=== PATIENT | female | born 1990 | race Hispanic/Latino ===

== ENCOUNTER 2017-08-25 22:33 | Emergency (ER) | payer OTHER, SELFPAY ==
[2017-08-25] MEDS ORDERED: LIDOCAINE 1% MPF 5 ML VIAL ONE (23:29)
--- NOTE | 2017-08-25 23:47 | EDPHYS ---
Physician Documentation [facility] Name: Melonie Fuller Age: 26 yrs Sex: Female : 1990 Arrival Date: 08/25/2017 Time: 22:33 Bed 27 Private MD: ED Physician Ran Vargas HPI: 08/26 01:38 This 26 yrs old Female presents to ER via Ambulatory with complaints of Boil. snw 01:38 Onset: The symptoms/episode began/occurred suddenly, 2 day(s) ago, and became snw persistent. Associated signs and symptoms: The patient has no apparent associated signs or symptoms. The patient has not experienced similar symptoms in the past. It is unknown whether or not the patient has recently seen a physician. 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 - Social history:: Smoking status: Patient/guardian denies using tobacco, Patient/guardian denies using alcohol, street drugs, IV drugs. - Ebola Screening: : No symptoms or risks identified at this time. ROS: 08/26 01:35 Constitutional: Negative for fever, chills, and weight loss, Eyes: Negative for injury, snw pain, redness, and discharge, ENT: Negative for injury, pain, and discharge, Neck: Negative for injury, pain, and swelling, Cardiovascular: Negative for chest pain, palpitations, and edema, Respiratory: Negative for shortness of breath, cough, wheezing, and pleuritic chest pain, Abdomen/GI: Negative for abdominal pain, nausea, vomiting, diarrhea, and constipation, Back: Negative for injury and pain, : Negative for injury, bleeding, discharge, and swelling, MS/Extremity: Negative for injury and deformity, Neuro: Negative for headache, weakness, numbness, tingling, and seizure. Skin: Positive for abscess, of the left buttock. Exam: 01:34 Constitutional: This is a well developed, well nourished patient who is awake, alert, snw and in no acute distress. Head/Face: Normocephalic, atraumatic. Eyes: Pupils equal round and reactive to light, extra-ocular motions intact. Lids and lashes normal. Conjunctiva and sclera are non-icteric and not injected. Cornea within normal limits. Periorbital areas with no swelling, redness, or edema. 01:34 Neck: Trachea midline, no thyromegaly or masses palpated, and no cervical lymphadenopathy. Supple, full range of motion without nuchal rigidity, or vertebral point tenderness. No Meningismus. Chest/axilla: Normal chest wall appearance and motion. Nontender with no deformity. No lesions are appreciated. Cardiovascular: Regular rate and rhythm with a normal S1 and S2. No gallops, murmurs, or rubs. Normal PMI, no JVD. No pulse deficits. Respiratory: Lungs have equal breath sounds bilaterally, clear to auscultation and percussion. No rales, rhonchi or wheezes noted. No increased work of breathing, no retractions or nasal flaring. Abdomen/GI: Soft, non-tender, with normal bowel sounds. No distension or tympany. No guarding or rebound. No evidence of tenderness throughout. Back: No spinal tenderness. No costovertebral tenderness. Full range of motion. MS/ Extremity: Pulses equal, no cyanosis. Neurovascular intact. Full, normal range of motion. Neuro: Awake and alert, GCS 15, oriented to person, place, time, and situation. Cranial nerves II-XII grossly intact. Motor strength 5/5 in all extremities. Sensory grossly intact. Cerebellar exam normal. Normal gait. 01:34 ENT: External ear(s): are unremarkable, Nose: nasal drainage, that is moderate, and is seen coming from both nares, that is clear, Mouth: is normal. 01:34 Skin: Appearance: normal except for affected area, abscess, that is small, of the left buttock. Vital Signs: 08/25 23:20 BP 138 / 83; Pulse 90; Resp 18; Temp 98.5; Pulse Ox 100% on R/A; Weight 127.01 kg; mg2 Height 5 ft. 0 in. (152.40 cm); Pain 4/10; 23:20 Body Mass Index 54.68 (127.01 kg, 152.40 cm) mg2 MDM: 22:52 Patient medically screened. snw 08/26 01:36 Data reviewed: vital signs, nurses notes. Data interpreted: Pulse oximetry: on room air snw is 100 %. Interpretation: normal. Counseling: I had a detailed discussion with the patient and/or guardian regarding: the historical points, exam findings, and any diagnostic results supporting the discharge/admit diagnosis, the presence of at least one elevated blood pressure reading (>120/80) during this emergency department visit, lab results, the need for outpatient follow up, to return to the emergency department if symptoms worsen or persist or if there are any questions or concerns that arise at home. Special discussion: Based on the history and exam findings, there is no indication for further emergent testing or inpatient evaluation. I discussed with the patient/guardian the need to see the bobbin handler for further evaluation of the symptoms. 08/25 23:19 Order name: Wound Culture snw Administered Medications: 08/25 23:42 Drug: Lidocaine (1 %) 5 mg Route: Infiltration; mg2 08/26 00:01 Follow up: Response: No adverse reaction mg2 00:00 Drug: [place] 5 mg-325 mg 1 tabs Route: PO; mg2 00:01 Follow up: Response: No adverse reaction; Medication administered at discharge. mg2 00:01 Drug: KeFLEX 500 mg Route: PO; mg2 00:01 Follow up: Response: No adverse reaction; Medication administered at discharge. mg2 Disposition: 08/25/17 23:46 Discharged to Home. Impression: Cutaneous abscess of buttock, Pyogenic granuloma. - Condition is Stable. - Discharge Instructions: Abscess, Hypertension, Incision and Drainage, Sitz Bath. - Prescriptions for Keflex 500 mg Oral Capsule - take 1 capsule by ORAL route every 8 hours for 10 days; 30 capsule. Diclofenac Sodium 75 mg Oral Tablet Sustained Release - take 1 tablet by ORAL route 2 times per day; 30 tablet. - Medication Reconciliation Form, Thank You Letter, Antibiotic Education, Prescription Opioid Use form. - Follow up: Emergency Department; When: As needed; Reason: Worsening of condition. Follow up: Private Physician; When: 1 - 2 days; Reason: Recheck today's complaints, Continuance of care, Re-evaluation by your physician. Addendum: 08/28/2017 06:33 Co-signature as Attending Physician, Ran Vargas MD I agree with the assessment and c aguirre plan of care. Signatures: Dispatcher [employer] Ran Rabago MD MD cha Therrien, Shelly, RESIDENT SERVICES DIRECTOR-C RESIDENT SERVICES DIRECTOR-Csnw Gonzales Richter, RN RN mg2 Corrections: (The following items were deleted from the chart) 08/26 00:05 08/25 23:46 08/25/2017 23:46 Discharged to Home. Impression: Cutaneous abscess of mg2 buttock; Pyogenic granuloma. Condition is Stable. Forms are Medication Reconciliation Form, Thank You Letter, Antibiotic Education, Prescription Opioid Use. Follow up: Emergency Department; When: As needed; Reason: Worsening of condition. Follow up: Private Physician; When: 1 - 2 days; Reason: Recheck today's complaints, Continuance of care, Re-evaluation by your physician. snw
--- NOTE | 2017-08-25 23:47 | ER ---
Nurse's Notes [facility] Name: Melonie Fuller Age: 26 yrs Sex: Female : 1990 Arrival Date: 08/25/2017 Time: 22:33 Bed 27 Private MD: Diagnosis: Cutaneous abscess of buttock;Pyogenic granuloma Presentation: 08/25 23:14 Presenting complaint: Patient states: she has a boil on her right buttocks for 6 month. mg2 she is not on any treatment. Transition of care: patient was not received from another setting of care. Onset of symptoms was March 2017. Risk Assessment: Do you want to hurt yourself or someone else? Patient reports no desire to harm self or others. Initial Sepsis Screen: Does the patient meet any 2 criteria? No. Patient's initial sepsis screen is negative. Does the patient have a suspected source of infection? No. Patient's initial sepsis screen is negative. Care prior to arrival: None. 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 - Social history:: Smoking status: Patient/guardian denies using tobacco, Patient/guardian denies using alcohol, street drugs, IV drugs. - Ebola Screening: : No symptoms or risks identified at this time. Screenin/13 00:04 Abuse screen: Denies threats or abuse. Denies injuries from another. Nutritional mg2 screening: No deficits noted. Tuberculosis screening: No symptoms or risk factors identified. Fall Risk None identified. Assessment: 00:02 General: Appears in no apparent distress. comfortable, Behavior is calm, cooperative. mg2 Pain: Complains of pain in right buttock Pain does not radiate. Pain currently is 5 out of 10 on a pain scale. Quality of pain is described as aching, Pain began gradually, 6 months ago. Neuro: Level of Consciousness is awake, alert, obeys commands, Oriented to person, place, time, situation. Cardiovascular: Capillary refill < 3 seconds Patient's skin is warm and dry. Respiratory: Airway is patent Respiratory effort is even, unlabored, Respiratory pattern is regular, symmetrical. GI: No signs and/or symptoms were reported involving the gastrointestinal system. : No signs and/or symptoms were reported regarding the genitourinary system. EENT: No signs and/or symptoms were reported regarding the EENT system. Derm: Skin is intact, Skin is pink, warm \T\ dry. normal, Abscess located on right buttock is nickel sized. Musculoskeletal: No signs and/or symptoms reported regarding the musculoskeletal system. Vital Signs: 08/25 23:20 BP 138 / 83; Pulse 90; Resp 18; Temp 98.5; Pulse Ox 100% on R/A; Weight 127.01 kg; mg2 Height 5 ft. 0 in. (152.40 cm); Pain 4/10; 23:20 Body Mass Index 54.68 (127.01 kg, 152.40 cm) mg2 ED Course: 22:33 Patient arrived in ED. ds1 22:51 Jackie Krishnan FNP-C [facility]. snw 22:51 Ran Vargas MD is Attending Physician. snw 23:07 Gonzales Richter RN is Primary Nurse. mg2 23:15 Triage completed. mg2 23:22 Arm band placed on. mg2 23:50 Patient has correct armband on for positive identification. mg2 08/26 00:04 No provider procedures requiring assistance completed. Patient did not have IV access mg2 during this emergency room visit. Administered Medications: 08/25 23:42 Drug: Lidocaine (1 %) 5 mg Route: Infiltration; mg2 08/26 00:01 Follow up: Response: No adverse reaction mg2 00:00 Drug: [place] 5 mg-325 mg 1 tabs Route: PO; mg2 00:01 Follow up: Response: No adverse reaction; Medication administered at discharge. mg2 00:01 Drug: KeFLEX 500 mg Route: PO; mg2 00:01 Follow up: Response: No adverse reaction; Medication administered at discharge. mg2 Outcome: 08/25 23:46 Discharge ordered by . snw 08/26 00:04 Discharged to home ambulatory, with family. mg2 Condition: stable Discharge instructions given to patient, family, Instructed on discharge instructions, follow up and referral plans. medication usage, Demonstrated understanding of instructions, follow-up care, medications, Prescriptions given X 2. 00:05 Patient left the ED. mg2 Signatures: Jackie Krishnan, DIRECTOR GIFT-C DIRECTOR GIFT-Csnw Fossi ds1 Gonzales Richter, RN RN mg2 Corrections: (The following items were deleted from the chart) 00:02 00:01 Response: No adverse reaction; Medication held due to patient's status mg2 mg2
[2017-08-25] MEDS ORDERED: HYDROCODONE/APAP 5/325 MG TAB ONE (23:56)
[2017-08-25] MEDS ORDERED: CEPHALEXIN 250 MG CAP ONE (23:57)
== END 2017-08-26 00:05 | disposition home or self-care (01) ==
LOC: ER 22:33
DX: L98.0 Pyogenic granuloma (principal)
CPT/HCPCS: 87070; 87205; 99283

== ENCOUNTER 2020-11-11 19:28 | Observation (INO) | payer OTHER, SELFPAY ==
[2020-11-11] MEDS ORDERED: BUTORPHANOL 1 MG/ML INJ IV PRN (21:11)
[2020-11-11] MEDS ORDERED: Ringers Lactate 1,000 ML IV PRN (21:11)
[2020-11-11] MEDS ORDERED: ZOLPIDEM TARTRATE 10 MG TABLET PO ONE (21:16)
--- NOTE | 2020-11-11 21:31 | RAD REPORT ---
EXAM DESCRIPTION: US - OB Limited - 11/11/2020 9:03 pm CLINICAL HISTORY: with vaginal bleeding COMPARISON: None FINDINGS: Breech presentation. No amniotic fluid. No cardiac activity. Marked cervical funneling BPD 4.7 centimeters 20 weeks 1 day HC 18.5 centimeters 20 weeks 6 days Right and left adnexal unremarkable IMPRESSION: demise Estimated gestational age 20 weeks 4 days
[2020-11-11] MEDS ORDERED: Ringers Lactate 1,000 ML IV SCH (22:00)
[2020-11-11 22:13] LABS: Urine Appearance CLEAR (Clear); Urine Bilirubin NEGATIVE (Negative); Urine Blood 3+ (Negative); Urine Color YELLOW (Yellow); Urine Glucose NEGATIVE (Negative); Urine Protein NEGATIVE (Negative); Urine Specific Gravity <=1.005 (1.005-1.030); Urine Urobilinogen 0.2 mg/dL (0.2-1.0)
[2020-11-11 22:13] LABS: Absolute Lymphocytes (CBC) 2.8 K/uL (0.7-4.9); Basophils % 0.3 % (0-1.3); Hematocrit 38.4 % (36.0-45.0); Lymphocytes % 19.3 % (15.3-44.8); MPV 9.1 fL (7.6-11.3); RBC Red Blood Cell Count 4.22 M/uL (3.86-4.86)
[2020-11-11 22:14] LABS: Urine Microscopic Reflex ORDER UMIC
[2020-11-11 22:20] LABS: Urine Bacteria <20 /HPF (<20); Urine Mucus 2+ /HPF (NONE SEEN)
[2020-11-11 22:22] LABS: Barbiturates NEGATIVE (NEGATIVE); Benzodiazepines NEGATIVE (NEGATIVE); Cocaine NEGATIVE (NEGATIVE); METHAMPHETAM NEGATIVE (NEGATIVE); Methadone NEGATIVE (NEGATIVE); Opiates NEGATIVE (NEGATIVE); Phencyclidine NEGATIVE (NEGATIVE); THC Cannibis POSITIVE (NEGATIVE)
[2020-11-11 22:44] VITALS: BMI 50.8
[2020-11-11 23:48] LABS: RPR (Rapid Plasma Reagin) NON-REACT (NON-REACT)
[2020-11-12 05:57] VITALS: BP 117/68; TEMP 99.8
[2020-11-12] MEDS ORDERED: OXYTOCIN/LR 20 UNIT/1,000 ML BAG IV SCH (07:00)
[2020-11-12] MEDS ORDERED: PROMETHAZINE INJ 25 MG/ML AMP IM PRN (07:40)
[2020-11-12] MEDS ORDERED: METHYLERGONOVINE 0.2MG/ML AMP IM ONE (09:09)
[2020-11-12] MEDS ORDERED: LIDOCAINE 1% MPF 30 ML VIAL ONE (09:09)
--- NOTE | 2020-11-12 09:37 | RAD REPORT ---
EXAM DESCRIPTION: US - OB Limited - 11/12/2020 9:18 am CLINICAL HISTORY: RETAINED PLACENTA COMPARISON: OB Limited dated 11/11/2020 FINDINGS: No IUP identified. Endometrial thickness measures 13 millimeters. No findings to suggest r etained products of conception. No significant focal adnexal abnormality. No free fluid. The uterus m easures 13.9 cm in length. IMPRESSION: No evidence of retained products of conception.
--- NOTE | 2020-11-12 10:04 | OP ---
Surgeon: Abiel Mustafa MD Procedure In Detail: Melonie Fuller is a 30-year-old, primigravida, 21 weeks 2 days. Had an ultrasound last Tuesday at [facility], showed normal. Within the last 24 hours, she had vaginal bleeding, came t o our facility, was noted to have hourglassing membranes. Ultrasound demonstrated demise, christophe ch presentation. The patient was observed this morning. During the exam, rupture of membranes, meco nium staining and the baby is about -1 station. Started on Pitocin and delivered rapidly of a 15-oun ce female. Apgars 0 and 0 normal. No cord problem that could be seen. Placenta was spon taneous, but it was ragged 1 piece, but not completely normal formed. Ultrasound has been ordered to make sure there are no retained products. The patient's lochia is minimal at this point. She was g iven 2 g of Ancef during the labor. Cultures aerobic and anaerobic were taken. Torch screen has bee n ordered. The patient is quite stable at this point. Got Stadol 1 mg, Phenergan 25 mg during her l abor. Final Diagnoses: Intrauterine gestation 21 weeks 2 days, stillborn. Spontaneous vaginal delivery. Ultrasound pending to make sure of complete placental expulsion. She is Rh positive, immune to Rubel la. Tdap will be offered. AMRIT/CLIF Voice ID: [id number] Report ID: [id number]
--- NOTE | 2020-11-12 10:07 | PREOPHP ---
Date of Admission: 11/11/2020 History Of Present Illness: Melonie Fuller is a 30-year-old, primigravida, 21 weeks and approximately 2 or 3 days. Has been seen in the [facility], was supposed to deliver at [facility]. Had ultrasound l ast Tuesday that showed everything was completely normal with routine ultrasound. No problems at that point. The patient denies any significant drug intake. Denies any problems. Says she was tested f or diabetes and was negative. Began bleeding yesterday, came to Labor and Delivery. Had some bloody show, but no significant bleeding. Was noted to have the bag of water is bulging into the vagina. Ultrasound demonstrated a demise. Baby is breech. She was asleep this morning, but on exam th e bag of water spontaneously broke in the meconium stain. The baby is about -1 station, breech prese ntation. Options given including if she wished to go to [place], but she says she has never been th ere and does not wish to go and wishes stay here, and we informed her we will be happy to take care o f her. We will start Pitocin. We will also start some antibiotics. Screen thus far shows the patie nt is Rh positive and immune to Rubella. Strep status course is to early, but we will give the patie nt antibiotics. There was no strong odor and the patient has had no fever, but this is more for prop hylaxis. Once we get good firm contractions, I think we will make fairly expeditious progress. The patient knows that we will do our best to try to figure out the reason for the demise, but there were no guarantees can be made. She is alone right now. Says she probably will have somebody come ana g this process. Family History: There is no contributing significant family history. Allergies: NO ALLERGIES. Physical Examination: HEENT: Clear. Pupils equal, round, and reactive to light and accommodation. Conjunctivae well perf used. No oral, lingual, or buccal lesions. Chest and Lungs: Clear to auscultation by the nurses. Breasts: Not examined. 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 Abdomen: Very large, but nontender. Extremities: Clear without edema, cyanosis, or clubbing. Assessment/plan: Pelvic exam shows spontaneous rupture. Baby breech, but difficult to say how much cervix since presenting part makes it difficult to feel the cervical edges, but I think with good fir m contractions, we should make rapid progress. AMRIT/CLIF Voice ID: [id number]
[2020-11-12] MEDS ORDERED: CEFAZOLIN 2 GM IN 0.9% NACL 2 GM/100 ML BAG IV SCH (12:00)
[2020-11-12] MEDS ORDERED: CEFAZOLIN 2 GM in NA CHLORIDE 0.9% 100 ML IVPB SCH (12:00)
[2020-11-16 18:35] LABS: HBsAG Nonreactive (Nonreactive)
== END 2020-11-12 15:50 | disposition home or self-care (01) ==
LOC: L&D 19:28 → 2ND-WC 21:09 → INTOOBSV 21:09
PROVIDERS: ADMIT Specialist; ATTEND Specialist
PROC: 10E0XZZ Delivery of Products of Conception, External Approach (ICD-10-PCS; principal; 2020-11-12)
DX: O36.4XX0 Maternal care for intrauterine death, not applicable or unspecified (principal); Z37.1 Single stillbirth; Z3A.21 21 weeks gestation of pregnancy; Z20.822 Contact with and (suspected) exposure to COVID-19
CPT/HCPCS: 99218; 87088; 87070; 85025; 87086; 36415; 86900; 86850; 82947; 87205; 86762; 86901; 86592; 88305; 87075; 80307; 87340; 76815 ×2; G0433; U0003; J0595; J2550; J2590; J0690; G0378 ×4; J7120; 81003; 81015; 88307; J2210

== ENCOUNTER 2021-07-24 05:07 | Emergency (ER) | payer OTHER ==
--- OUTSIDE RECORDS SUMMARY | 2021-07-24 05:11 | XMS REPORT | Continuity of Care Document ---
:1990 Author Organization [facility] t Address [address] [place] [address] Dr. Fernandez [address] [place] [address] Care Team Providers Name Role Phone Unavailable Unavailable Unavailable Problems This patient has no known problems. Allergies, Adverse Reactions, Alerts This patient has no known allergies or adverse reactions. Medications This patient has no known medications. Procedures This patient has no known procedures. Results Test Description Test Time Test Comments Results Result Comments Source HEMOGLOBIN ELECTROPHORESIS 2021-07-20 19:22:48 Test Item Value Reference Range Interpretation Comme nts HEMOGLOBIN A1 (test code = 97.4 % 95.0-98.5 2575) HEMOGLOBIN A2 (test code = 2.6 % 1.6-3.7 2576) HEMOGLOBIN F () (test 0.0 % 0.0-2.0 code = 2722) HEMOGLOBIN S (test code = NONE % NONE DETECTED 272) HEMOGLOBIN C (test code = NONE % NONE DETECTED 6) OTHER HEMOGLOBIN VARIANT (test NONE DETEC % NONE DETECTED code = 67998) PATHOLOGIST'S INTERPRETATION (NOTE) NO ABNORMAL HEMOGLOBINS (test code = 2577) YEVGENIY DENT M.D. CT/NG, NAAT, [id number] 17:58:46 Test Item Value Reference Range Interpretation Comments GONORRHEA, NAAT NEGATIVE NEGATIVE IMPORTANT (test code = NOTICE: [place] [address]) [email or web address] Note: Assay methodology is nucleic acid amplification b y ferry terminal agent mediated amplification ( TMA) utilizing the A ptima Combo 2 Assay. CHLAMYDIA, NAAT NEGATIVE NEGATIVE IMPORTANT (test code = NOTICE: [place] [address]) [email or web address] Note: Assay methodology is nucleic acid amplification b y ferry terminal agent mediated amplification ( TMA) utilizing the A ptima Combo 2 Assay. THC METABOLITE, QUANT, [id number] 17:13:23 Test Item Value Reference Range Interpretation Comments CARBOXY-THC Positive A INTERP (test code = 19742) CARBOXY-THC 460 ng/mL <15 H Reference rang e indicates QNT (test cutoff for posi tive result code = 04354) determination. Specimen Type: Urine Urine jim g and metabolite concentrations are dependent on manyfactors, in cluding patient compliance, jim g dosing, dosing interval,indivi dual variation in drug absorpt ion and metabolism, uri neconcentration, and limitations of testing. Assay is intend ed formedical purposes only, not for forensic use. This test was developed and its perform ance characteristics determined by [facility] ([facility]). It has n ot beencleared or approved by the U.S. Food and Drug Admini stration (FDA).The FDA h as determined that such clear ance or approval is notnecessary . This test is used for clinic al purposes and should not willy garded as investigational or for research. [facility] i s qualified toperform high complexity testing under t he Clinical LaboratoryImpro vement Amendments (CLI A). TESTING PERFORM ED AT [facility]. [address] [place] [address], [address], [place] [address] CLIA NO: [id number] UNLESS OTHE RWISE INDICATED, ALL TESTING PER FORMED ATCLINICAL PATH [facility], I [place]. [address] [place] [address] LABORATORY DIRE CTOR: SALUD CUENCA M.D. CLIA NUMBER [id number] CAP ACCREDITATION N O. [id number] VARICELLA ZOSTER [id number] 15:39:26 Test Item Value Reference Range Interpretation Comments VARICELLA ZOSTER IgG 655 INDEX SEE BELOW INTERPRETATION (test code = 14178) VZV IgG N EGATIVE . . . . . . . . . . . . INDEX <135 EQUIVOCAL. . . . . . . . . . . . I NDEX 135-164 NOTE: CONSIDER RETEST ING IN A CLINICALLY SUIT ABLE TABBY OD OF TIME, NO SOONER THAN 1-2 WEEKS. POSITIVE . . . . . . . . . . . . INDEX >=165 DRUG ABUSE SCREEN 10 REFLEX [id number] 06:49:02 Test Item Value Reference Interpretation Comments Range AMPHETAMINES (test NEGATIVE NEGATIVE code = 3201) BARBITURATES (test NEGATIVE NEGATIVE code = 3202) BENZODIAZEPINES NEGATIVE NEGATIVE (test code = 3203) CANNABINOIDS (test SEE REFLEX NEGATIVE A code = 3204) TESTING COCAINE METABOLITE NEGATIVE NEGATIVE (test code = 3205) OPIATES (test code = NEGATIVE NEGATIVE 3209) OXYCODONE (test code NEGATIVE NEGATIVE = 09758) PHENCYCLIDINE (test NEGATIVE NEGATIVE code = 3210) METHADONE (test code NEGATIVE NEGATIVE = 3207) BUPRENORPHINE (test NEGATIVE NEGATIVE code = 94045) SOURCE (test code = URINE * SEE BELOW FOR 491621) THRESHOLDS AND IMPORTANT METHOD NOTES * ANALYTE SCREENING CUTOF F CONFIRMATORY CUTOFF ___AMPHETAMINES 500 NG/M L 100 NG/MLBARBITURAT ES 200 NG /ML 100 NG/MLBENZODIAZE PINES 200 NG /ML 100 NG/MLCANNABINOI DS (THC) 20 NG /ML 15 NG/MLCOCAINE ME TABOLITES 150 NG /ML 100 NG /MLOPIATE METABOLITES 300 NG/ML 100 NG/MLOXYCOD ONE 10 0 NG/ML 10 0 NG/MLPHENCYCLID INE (PCP) 25 NG /ML 25 NG/MLMETHADONE 300 NG /ML 100 NG/MLBUPRENORPH INE 5 NG /ML 5 NG /ML NOTE: Screening metho dology is qualitative Enz yme Immunoassay.The screening metho d may be less sensitive for certain medicationsincl uding clonazepam and lorazepam in the benzodia zepine assay andtramad ol or fentanyl in the opiate assay, amongst others. Patientcomplian ce, hydration statu s, timing and dose of med ications, drugabsorption and specimen qualit y may affect screenin g assay.For clini christianne discrepancies, consider directed testin g for specificcompoun ds or contact the lab oratory within specimen stability tofor romeo for confirmatory te sting. This test is sp ecified for medicalpurp oses only. It is no t valid for forensic us e. OBSTETRIC PANEL + [id number] 04:24:57 Test Item Value Reference Range Interpretation Comments WBC (test code = 9.3 K/UL 3.5-11.0 1001) RBC (test code = 4.49 M/UL 3.80-5.40 1002) HEMOGLOBIN (test 13.8 G/DL 11.5-15.5 code = 1003) HEMATOCRIT (test 39.3 % 34.0-45.0 code = 1004) MCV (test code = 87.5 fL 80.0-99.0 1005) MCH (test code = 30.7 PG 25.0-33.0 1006) MCHC (test code = 35.1 G/DL 31.0-36.0 1007) RDW (test code = 12.7 % 11.5-15.0 1038) NEUTROPHILS (test 63.8 % code = 1008) LYMPHOCYTES (test 31.3 % code = 1010) MONOCYTES (test 4.2 % code = 1011) EOSINOPHILS (test 0.4 % code = 1012) BASOPHILS (test 0.1 % code = 1013) IMMATURE 0.2 % GRANULOCYTES (test code = 1036) NUCLEATED RBCS 0.0 /100 WBC'S See_Comment [Automate d message] (test code = 1065) The syste m which generated this result transmit courtney reference range : 0.0. The refere nce range was not u sed to interpret th is result as normal/abnormal . PLATELET COUNT 297 K/UL 130-400 (test code = 1015) ABSOLUTE 5.91 K/UL 1.50-7.50 NEUTROPHILS (test code = 1066) ABSOLUTE 2.90 K/UL 1.00-4.00 LYMPHOCYTES (test code = 1067) ABSOLUTE MONOCYTES 0.39 K/UL 0.20-1.00 (test code = 1068) ABSOLUTE 0.04 K/UL 0.00-0.50 EOSINOPHILS (test code = 1040) ABSOLUTE BASOPHILS 0.01 K/UL 0.00-0.20 (test code = 1069) ABS IMMATURE 0.02 K/UL 0.00-0.10 GRANULOCYTES (test code = 1020) ABS NUCLEATED RBCS 0.00 K/UL 0.00-0.11 (test code = 65760) BLOOD TYPE AND RH O POSITIVE A HISTORI CHRISTIANNE RECORD (test code = 3901) CHECK FOR PREVIOUS RESULTS IS NOT PERFORMED.THESE RESULTS SHOULD BE CORRELATED WITH RESULTS OF PRIO R BLOODTYPING AND ANTIBODY SCREEN STUDIES. ANTIBODY SCREEN NEGATIVE NEGATIVE A HISTORICA L RECORD (test code = 3902) CHECK FOR PREVIOUS RESULTS IS NOT PERFORMED.THESE RESULTS SHOULD BE CORRELATED WITH RESULTS OF PRIO R BLOODTYPING AND ANTIBODY SCREEN STUDIES. RUBELLA ANTIBODY 43 IU/ML SEE BELOW SCREEN (test code = INTERPRE TATION 4600) RUBELLA IgG NON-REACTIVE/NO N-IMM UNE . . . . . . . IU/ML < 10 REACTIVE/IM MUNE . . . . . . . . . . . IU/ML >=10 RUBELLA IgG INTERP REACTIVE REACTIVE (test code = 03561) HEPATITIS B SURF AG NON-REACTIVE NON-REACTIVE (test code = 2739) RPR (test code = NON-REACTIVE NON-REACTIVE 01890) RPR TITER (test NOT INDIC. NOT INDIC. code = 3500) TITER HIV 1/2 4TH GEN, NON-REACTIVE NON-REACTIVE RFLX CONF (test code = 3514) HEPATITIS C REFLEX [id number] 04:24:57 Test Item Value Reference Range Interpretation Comments HEPATITIS C ANTIBODY (test code NON-REACTIVE NON-REACTIVE = 4675) [id number] 03:37:21 Test Item Value Reference Range Interpretation Comments RPR RESULT (test code = NON-REACTIVE NON-REACTIVE 3501) RPR TITER (test code = 3500) NOT INDIC. TITER NOT INDIC. CULTURE, [id number] 09:57:32SPECIMEN NUMBER: [id number] CULTURE, URINE SPECIMEN NUMBER: [id number] SPECIMEN COMMENT: URINE SOURCE: URINE REPORT STATUS: FINAL FINAL REPORT: 07/16/2021 & gt;100,000 CFU/ML UROGENITAL DOMINIC PRESENT NO COMMON PATHOGENS UNLESS OTHERWISE INDICATED, ALL TESTING PERFORMED [facility] [address] [place] [id number] INSTRUCTIONAL TECHNOLOGY SPECIALIST: SALUD CUENCA M.D. CLIA NUMBER [id number] [place]. [id number]
[2021-07-24 05:29] LABS: Urine Blood 2+ (Negative); Urine Glucose Negative (Negative); Urine Protein Negative (Negative); Urine Specific Gravity 1.025 (1.005-1.030); Urine pH 6.5 (5.0-7.0)
[2021-07-24 05:33] LABS: Urine Specific Gravity/Preg 1.025 (1.005-1.030)
[2021-07-24 05:48] LABS: Absolute Lymphocytes (CBC) 2.2 K/uL (0.7-4.9); Hematocrit 42.7 % (36.0-45.0); MPV 8.4 fL (7.6-11.3); RBC Red Blood Cell Count 4.68 M/uL (3.86-4.86)
[2021-07-24 05:56] LABS: Urine Amorphous Sediment 1+ /HPF (NONE SEEN); Urine Bacteria >50 /HPF (<20); Urine Mucus 2+ /HPF (NONE SEEN); Urine RBC <5 /HPF (NONE SEEN)
--- NOTE | 2021-07-24 08:00 | ER ---
Nurse's Notes [facility] Name: Melonie Fuller Age: 30 yrs Sex: Female : 1990 Arrival Date: 07/24/2021 Time: 05:11 Bed 6 Private MD: Diagnosis: Threatened ;Other specified related conditions, first trimester;Less than 8 weeks gestation of Presentation: 07/24 05:20 Chief complaint: Patient states: Light vaginal bleeding that began 1 day ago, continued lp1 this morning; Patient reports hx of stillbirth at 6 months last year. Coronavirus screen: At this time, the client does not indicate any symptoms associated with coronavirus-19. Ebola Screen: No symptoms or risks identified at this time. Risk Assessment: Do you want to hurt yourself or someone else? Patient reports no desire to harm self or others. Onset of symptoms was July 24, 2021. 05:20 Method Of Arrival: Ambulatory lp1 05:31 Initial Sepsis Screen: Does the patient meet any 2 criteria? No. Patient's initial kd3 sepsis screen is negative. Does the patient have a suspected source of infection? No. Patient's initial sepsis screen is negative. 05:31 Acuity: EMILIO 3 kd3 Triage Assessment: 05:31 General: Appears in no apparent distress. Behavior is calm, cooperative. Neuro: Level kd3 of Consciousness is awake, alert, obeys commands, Oriented to person, place, time, situation. Cardiovascular: Patient's skin is warm and dry. Respiratory: Airway is patent Trachea midline Respiratory effort is even, unlabored, Respiratory pattern is regular, symmetrical. AIR GRINDER: 05:22 LMP 05/24/2021, Verified, EDC 02/28/2022, Gestational age from LMP: 8 weeks 5 lp1 days Historical: - Allergies: 05:21 No Known Drug Allergies; lp1 - Home Meds: 05:21 Singulair Oral [Active]; Zoloft Oral [Active]; Wellbutrin Oral [Active]; lp1 Vitamin Oral [Active]; - PMHx: 05:21 None; lp1 - PSHx: 05:21 None; lp1 - Immunization history:: Adult Immunizations up to date, Adult Immunizations up to date. - Social history:: Smoking status: Patient denies any tobacco usage or history of. Smoking status: Patient denies any tobacco usage or history of. Patient/guardian denies using. - Family history:: not pertinent. - Hospitalizations: : No recent hospitalization is reported. Screenin:31 Abuse screen: Denies threats or abuse. Denies injuries from another. Nutritional kd3 screening: No deficits noted. Tuberculosis screening: No symptoms or risk factors identified. Fall Risk IV access (20 points). Assessment: 05:21 Obstetrical Assessment: General assessment: awake and alert, skin warm and dry, kd3 respirations even and unlabored. General: Appears in no apparent distress. Behavior is calm, cooperative. Pain: Denies pain. : No signs and/or symptoms were reported regarding the genitourinary system. Vital Signs: 05:29 BP 132 / 54; Pulse 80; Resp 17; Temp 98.7; Pulse Ox 99% on R/A; Weight 117.93 kg; kd3 Height 5 ft. 5 in. (165.10 cm); 06:48 BP 127 / 65; Pulse 63; Resp 17; Pulse Ox 95% on R/A; kd3 07:38 BP 131 / 62; Pulse 91; Pulse Ox 100% on R/A; ap3 05:29 Body Mass Index 43.27 (117.93 kg, 165.10 cm) kd3 Vitals: 08:19 Heart Tones 150. ap3 ED Course: 05:11 Patient arrived in ED. ja2 05:11 Cachorro Abreu MD is Attending Physician. rn 05:12 Cecelia Callejas, GEOVANNA is Primary Nurse. kd3 05:20 Arm band placed on right wrist. lp1 05:31 Triage completed. kd3 05:32 Patient has correct armband on for positive identification. kd3 05:32 No provider procedures requiring assistance completed. kd3 05:32 Urine Microscopic Only Sent. oe 07:08 Attending Physician role handed off by Cachorro Abreu MD jessica 07:08 Ran Vargas MD is Attending Physician. jessica 07:39 ED physician to see patient. ap3 08:00 Abiel Mustafa MD is Referral Physician. jessica 08:19 IV discontinued, intact, bleeding controlled, No redness/swelling at site. Pressure ap3 dressing applied. 08:36 US Transvaginal Ob In Process Unspecified. EDMS Administered Medications: No medications were administered Medication: 05:22 VIS not applicable for this client. lp1 Point of Care Testing: Urine : 08:19 hCG Reading: Positive; Control Reading: Positive; ap3 Outcome: 08:00 Discharge ordered by . jessica 08:19 Discharged to home ambulatory. ap3 08:19 Condition: good 08:19 Discharge instructions given to patient, Instructed on discharge instructions, follow up and referral plans. Demonstrated understanding of instructions, follow-up care. 08:31 Patient left the ED. ap3 Signatures: Dispatcher [employer] EDIA Ran Vargas MD MD cha Nieto, Roman, MD MD rn Pena, Laura RN RN lp1 Justin Walker Amanda, RN RN ap3 Xiomy Birmingham Kyli, RN RN kd3
--- NOTE | 2021-07-24 08:00 | EDPHYS ---
Physician Documentation [facility] Name: Melonie Fuller Age: 30 yrs Sex: Female : 1990 Arrival Date: 07/24/2021 Time: 05:11 Bed 6 Private MD: ED Physician Ran Vargas HPI: 07/24 05:18 This 30 yrs old Female presents to ER via Unassigned with complaints of rn Vaginal Bleeding, + Preg <12wks. 05:18 The patient presents to the emergency department with vaginal bleeding, that is light, rn described as spotting. The estimated gestational age is 7 weeks. course: care: private OB physician, Leakage of Fluid: none appreciated, Ultrasound: the patient had an ultrasound. Previous pregnancies: in previous pregnancies patient has had. The patient has experienced a previous episode. The patient has been recently seen by a physician:. Pt reports 7 weeks , just had U/S a few days ago, sees Dr. Mustafa. Reports spotting/light bleeding that began yesterday, still bleeding today. No leakage of fluid. No trauma. No abd pain. No urinary symptoms. Reports 6 month stillbirth in past so just wanted to make sure baby is ok.. BENEFIT SPECIALIST: 05:22 LMP 05/24/2021, Verified, EDC 02/28/2022, Gestational age from LMP: 8 weeks 5 lp1 days Historical: - Allergies: 05:21 No Known Drug Allergies; lp1 - Home Meds: 05:21 Singulair Oral [Active]; Zoloft Oral [Active]; Wellbutrin Oral [Active]; lp1 Vitamin Oral [Active]; - PMHx: 05:21 None; lp1 - PSHx: 05:21 None; lp1 - Immunization history:: Adult Immunizations up to date, Adult Immunizations up to date. - Social history:: Smoking status: Patient denies any tobacco usage or history of. Smoking status: Patient denies any tobacco usage or history of. Patient/guardian denies using. - Family history:: not pertinent. - Hospitalizations: : No recent hospitalization is reported. ROS: 05:18 Constitutional: Negative for fever, chills, and weight loss, Eyes: Negative for injury, rn pain, redness, and discharge, Neck: Negative for injury, pain, and swelling, Cardiovascular: Negative for chest pain, palpitations, and edema, Respiratory: Negative for shortness of breath, cough, wheezing, and pleuritic chest pain, Abdomen/GI: Negative for abdominal pain, nausea, vomiting, diarrhea, and constipation, Back: Negative for injury and pain, : + vaginal bleeding MS/Extremity: Negative for injury and deformity, Skin: Negative for injury, rash, and discoloration, Neuro: Negative for headache, weakness, numbness, tingling, and seizure. Exam: 05:18 Constitutional: This is a well developed, well nourished patient who is awake, alert, rn and in no acute distress. Ambulatory to room and bathroom without difficulty or distress Head/Face: Normocephalic, atraumatic. Cardiovascular: Regular rate and rhythm. No pulse deficits. Respiratory: No increased work of breathing, no retractions or nasal flaring. Abdomen/GI: Soft, non-tender Skin: Warm, dry MS/ Extremity: Pulses equal, no cyanosis. Neuro: Awake and alert, GCS 15 Vital Signs: 05:29 BP 132 / 54; Pulse 80; Resp 17; Temp 98.7; Pulse Ox 99% on R/A; Weight 117.93 kg; kd3 Height 5 ft. 5 in. (165.10 cm); 06:48 BP 127 / 65; Pulse 63; Resp 17; Pulse Ox 95% on R/A; kd3 07:38 BP 131 / 62; Pulse 91; Pulse Ox 100% on R/A; ap3 05:29 Body Mass Index 43.27 (117.93 kg, 165.10 cm) kd3 MDM: 05:11 Patient medically screened. rn 07/24 05:12 Order name: Abo/rh Typing; Complete Time: 06:54 rn 07/24 05:12 Order name: Basic Metabolic Panel; Complete Time: 06:54 rn 07/24 05:12 Order name: CBC with Diff; Complete Time: 06:36 rn 07/24 05:12 Order name: Quantitative Hcg; Complete Time: 06:54 rn 07/24 05:12 Order name: Urine Microscopic Only; Complete Time: 06:36 rn 07/24 05:30 Order name: Urine Dipstick-Ancillary; Complete Time: 06:36 EDMS 07/24 05:12 Order name: IV Saline Lock; Complete Time: 05:32 rn 07/24 05:12 Order name: Labs collected and sent; Complete Time: 05:32 rn 07/24 05:12 Order name: NPO; Complete Time: 05:32 rn 07/24 05:32 Order name: Urine --Ancillary (enter results) oe 07/24 05:33 Order name: Urine --Ancillary; Complete Time: 06:36 EDMS 07/24 05:59 Order name: Urine Culture EDMS 07/24 07:33 Order name: US Transvaginal Ob jessica 07/24 05:12 Order name: Urine Dipstick-Ancillary (obtain specimen); Complete Time: 05:32 rn 07/24 05:12 Order name: Urine Test (obtain specimen); Complete Time: 05:32 rn Administered Medications: No medications were administered Point of Care Testing: Urine : 08:19 hCG Reading: Positive; Control Reading: Positive; ap3 Disposition Summary: 07/24/21 08:00 Discharge Ordered Location: Home jessica Problem: new jessica Symptoms: have improved jessica Condition: Stable jessica Diagnosis - Threatened jessica - Other specified related conditions, first trimester jessica - Less than 8 weeks gestation of jessica Followup: jessica - With: Private Physician - When: 2 - 3 days - Reason: Recheck today's complaints, Continuance of care, Re-evaluation by your physician Followup: jessica - With: Abiel Mustafa MD - When: 2 - 3 days - Reason: Recheck today's complaints, Continuance of care, Re-evaluation by your physician Discharge Instructions: - Care jessica - Threatened Miscarriage jessica - Vaginal Bleeding During , First Trimester jessica - First Trimester of , Ndqy-ll-Fzur jessica - First Trimester of jessica - Threatened Miscarriage, Avcp-sj-Rohq jessica - Discharge Summary Sheet rn - Vaginal Bleeding During , First Trimester, [id number]-Dtse jessica Forms: - Medication Reconciliation Form jessica - Thank You Letter jessica - Antibiotic Education jessica - Prescription Opioid Use jessica Signatures: Dispatcher [employer] Ran Rabago MD MD cha Nieto, Roman, MD MD rn Latonya Headley, RN RN lp1 Cecelia Callejas, RN RN kd3
--- NOTE | 2021-07-24 08:45 | RAD REPORT ---
EXAM DESCRIPTION: US - Transvaginal OB - 07/24/2021 8:34 am CLINICAL HISTORY: with pelvic pain COMPARISON: None. FINDINGS: The uterus measures 11 x 6 x 7 centimeters. A normal appearing gestational sac is present within the endometrium. Within this is a yolk sac and pole with a crown-rump length 1.7 centim eters. Cardiac activity 154 beats per minute Neither ovary seen secondary to overlying bowel gas The right and left adnexa are unremarkable No significant free fluid is seen. IMPRESSION: Single live intrauterine with an estimated gestational age 7 weeks 6 days ADAN 03/06/2022
[2021-07-24 08:53] VITALS: TEMP 98.7
[2021-07-24 08:59] VITALS: BP 131/62; O2SAT 100
== END 2021-07-24 08:31 | disposition home or self-care (01) ==
LOC: ER 05:07
DX: O20.0 Threatened abortion (principal); N93.8 Other specified abnormal uterine and vaginal bleeding; O26.891 Other specified pregnancy related conditions, first trimester
CPT/HCPCS: 36415; 76817; 80048; 81003; 81015; 81025; 84702; 85025; 86900; 86901; 87086; 87088; 99284

== ENCOUNTER 2021-08-17 21:14 | Emergency (ER) | payer OTHER ==
[2021-08-17 23:38] LABS: Urine Blood Trace-intact (Negative); Urine Glucose Negative (Negative); Urine Protein Negative (Negative); Urine pH 7.5 (5.0-7.0)
[2021-08-18 00:03] LABS: Urine Bacteria 20-50 /HPF (<20); Urine RBC <5 /HPF (NONE SEEN); Urine Yeast FEW (NONE SEEN)
--- NOTE | 2021-08-18 00:08 | ER ---
Nurse's Notes [facility] Name: Melonie Fuller Age: 30 yrs Sex: Female : 1990 Arrival Date: 08/17/2021 Time: 21:18 Bed 27 Private MD: Diagnosis: Candidiasis, unspecified;UTI/ Urinary tract infection, site not specified Presentation: 08/17 21:44 Chief complaint: Patient states: I think I have a yeast infections. I am 3 months jb4 . I was recently put on antibiotics, and I think it is from that. Coronavirus screen: At this time, the client does not indicate any symptoms associated with coronavirus-19. Ebola Screen: No symptoms or risks identified at this time. Initial Sepsis Screen: Does the patient meet any 2 criteria? No. Patient's initial sepsis screen is negative. Does the patient have a suspected source of infection? No. Patient's initial sepsis screen is negative. Risk Assessment: Do you want to hurt yourself or someone else? Patient reports no desire to harm self or others. Onset of symptoms was August 17, 2021. Transition of care: patient was not received from another setting of care. 21:44 Method Of Arrival: Ambulatory jb4 21:44 Acuity: EMILIO 3 jb4 CHEMICAL PACKAGER: 23:00 2, Full Term 0, 1 pm1 Historical: - Allergies: 21:45 No Known Allergies; jb4 - Home Meds: 21:45 Vitamin Oral [Active]; Singulair Oral [Active]; jb4 - PMHx: 21:45 Depressive disorder; Anxiety; jb4 - PSHx: 21:45 None; jb4 - Immunization history:: Adult Immunizations up to date. - Social history:: Smoking status: Patient denies any tobacco usage or history of. Patient uses street drugs, marijuana. Screenin:46 Abuse screen: Denies threats or abuse. Nutritional screening: No deficits noted. jb4 Tuberculosis screening: No symptoms or risk factors identified. Fall Risk None identified. Assessment: 21:46 General: Appears in no apparent distress. uncomfortable, Behavior is calm, cooperative, jb4 appropriate for age. Pain: Complains of pain in groin Pain does not radiate. Pain currently is 8 out of 10 on a pain scale. Quality of pain is described as itching. Neuro: Level of Consciousness is awake, alert, obeys commands, Oriented to person, place, time, situation. Cardiovascular: Patient's skin is warm and dry. Respiratory: Airway is patent Respiratory effort is even, unlabored, Respiratory pattern is regular, symmetrical. Derm: Skin is intact, Skin is pink, warm \T\ dry. Musculoskeletal: Circulation, motion, and sensation intact. Range of motion: intact in all extremities. 08/18 00:29 Reassessment: Patient is alert, oriented x 3, equal unlabored respirations, skin bb warm/dry/pink. awaiting shot time for discharge. 00:48 Reassessment: Patient is alert, oriented x 3, equal unlabored respirations, skin bb warm/dry/pink. pt verbalized understanding of and agrees to plan of care discharge instructions given pt ambulated with steady gait to exit. Vital Signs: 08/17 21:44 BP 130 / 89; Pulse 90; Resp 16; Temp 97.5(TE); Pulse Ox 98% on R/A; Weight 113.4 kg jb4 (R); Height 5 ft. 0 in. (152.40 cm) (R); Pain 8/10; 08/18 00:28 BP 123 / 62; Pulse 73; Resp 16 S; Pulse Ox 97% on R/A; bb 08/17 21:44 Body Mass Index 48.82 (113.40 kg, 152.40 cm) jb4 ED Course: 08/17 21:18 Patient arrived in ED. bp1 21:45 Triage completed. jb4 21:45 Arm band placed on. jb4 21:46 Patient has correct armband on for positive identification. jb4 22:05 Henry Rangel NP is PHCP. pm1 22:05 Ran Vargas MD is Attending Physician. pm1 08/18 00:27 Patricia Bryan, GEOVANNA is Primary Nurse. bb 00:29 No provider procedures requiring assistance completed. Patient did not have IV access bb during this emergency room visit. Administered Medications: 00:27 Drug: Rocephin (cefTRIAXone) 1 grams Route: IM; Site: right ventrogluteal; bb 00:48 Follow up: Response: No adverse reaction bb Medication: 08/17 21:46 VIS not applicable for this client. jb4 Outcome: 08/18 00:07 Discharge ordered by . pm1 00:49 Discharged to home ambulatory. bb 00:49 Condition: stable 00:49 Discharge instructions given to patient, Instructed on discharge instructions, follow up and referral plans. medication usage, Demonstrated understanding of instructions, follow-up care, medications, Prescriptions given X 2. 00:49 Patient left the ED. bb Signatures: Patricia Bryan, RN RN bb Henry Rangel, MARY LICENSED SURVEYOR pm1 Harshad Sky RN RN jb4 Corrine Perez [facility]
--- NOTE | 2021-08-18 00:08 | EDPHYS ---
Physician Documentation [facility] Name: Melonie Fuller Age: 30 yrs Sex: Female : 1990 Arrival Date: 08/17/2021 Time: 21:18 Bed 27 Private MD: ED Physician Ran Vargas HPI: 08/17 23:00 This 30 yrs old Female presents to ER via Ambulatory with complaints of pm1 Vaginal Itching, Vaginal Burning. 23:00 The patient presents with Rash and itching to groin. pm1 23:00 Onset: The symptoms/episode began/occurred Patient reports onset after taking pm1 antibiotics. Modifying factors: The symptoms are alleviated by remaining still, the symptoms are aggravated by movement, walking. Associated signs and symptoms: Pertinent negatives: dysuria, fever. Severity of symptoms: in the emergency department the symptoms are actually worse. The patient has not experienced similar symptoms in the past. BUSINESS JOB TITLES: 23:00 2, Full Term 0, 1 pm1 Historical: - Allergies: 21:45 No Known Allergies; jb4 - Home Meds: 21:45 Vitamin Oral [Active]; Singulair Oral [Active]; jb4 - PMHx: 21:45 Depressive disorder; Anxiety; jb4 - PSHx: 21:45 None; jb4 - Immunization history:: Adult Immunizations up to date. - Social history:: Smoking status: Patient denies any tobacco usage or history of. Patient uses street drugs, marijuana. ROS: 23:00 Positive for vaginal itching, Negative for urinary symptoms, flank pain, Abdominal pm1 pain. 23:00 Constitutional: Negative for fever, chills, and weight loss, Cardiovascular: Negative for chest pain, palpitations, and edema, Respiratory: Negative for shortness of breath, cough, wheezing, and pleuritic chest pain, Abdomen/GI: Negative for abdominal pain, nausea, vomiting, diarrhea, and constipation, Back: Negative for injury and pain, MS/Extremity: Negative for injury and deformity, Skin: Negative for injury, rash, and discoloration, Neuro: Negative for headache, weakness, numbness, tingling, and seizure. 23:00 All other systems are negative. Exam: 23:56 Constitutional: This is a well developed, well nourished patient who is awake, alert, pm1 and in no acute distress. Head/Face: Normocephalic, atraumatic. 23:56 Back: No spinal tenderness. No costovertebral tenderness. Full range of motion. 23:56 Cardiovascular: Exam negative for acute changes, Rate: normal, Rhythm: regular, Pulses: no pulse deficits are appreciated. 23:56 Respiratory: Exam negative for acute changes, respiratory distress, shortness of breath. 23:56 Abdomen/GI: Inspection: obese Palpation: abdomen is soft and non-tender, in all quadrants. 23:56 Skin: consistent with candidiasis. No signs of abscess or cellulitis, on the groin, Chaperoned by Rani AUSTIN. 23:56 Neuro: Exam negative for acute changes, Orientation: is normal, Mentation: is normal, Motor: is normal, moves all fours. Vital Signs: 21:44 BP 130 / 89; Pulse 90; Resp 16; Temp 97.5(TE); Pulse Ox 98% on R/A; Weight 113.4 kg jb4 (R); Height 5 ft. 0 in. (152.40 cm) (R); Pain 8/10; 08/18 00:28 BP 123 / 62; Pulse 73; Resp 16 S; Pulse Ox 97% on R/A; bb 08/17 21:44 Body Mass Index 48.82 (113.40 kg, 152.40 cm) jb4 MDM: 08/17 22:27 Patient medically screened. [facility] 08/18 00:05 Data reviewed: vital signs. Data interpreted: Pulse oximetry: on room air is 98 %. pm1 Interpretation: normal. Counseling: I had a detailed discussion with the patient and/or guardian regarding: the historical points, exam findings, and any diagnostic results supporting the discharge/admit diagnosis, lab results, the need for outpatient follow up, an OB/Gyne specialist, to return to the emergency department if symptoms worsen or persist or if there are any questions or concerns that arise at home. 08/17 23:00 Order name: Urine Microscopic Only; Complete Time: 00:04 pm1 08/17 23:39 Order name: Urine Dipstick-Ancillary; Complete Time: 00:03 EDMS 08/17 23:00 Order name: Urine Dipstick-Ancillary (obtain specimen); Complete Time: 23:38 pm1 08/17 23:58 Order name: Urine --Ancillary (enter results); Complete Time: 00:08 wm 08/18 00:10 Order name: Urine Culture EDMS Administered Medications: 00:27 Drug: Rocephin (cefTRIAXone) 1 grams Route: IM; Site: right ventrogluteal; bb 00:48 Follow up: Response: No adverse reaction bb Disposition Summary: 08/18/21 00:07 Discharge Ordered Location: Home pm1 Problem: new pm1 Symptoms: have improved pm1 Condition: Stable pm1 Diagnosis - Candidiasis, unspecified pm1 - UTI/ Urinary tract infection, site not specified pm1 Followup: pm1 - With: Emergency Department - When: As needed - Reason: Worsening of condition Followup: pm1 - With: Private Physician - When: 2 - 3 days - Reason: Recheck today's complaints, Continuance of care, Re-evaluation by your physician Discharge Instructions: - Discharge Summary Sheet pm1 - Vaginal Yeast Infection, Adult pm1 - and Urinary Tract Infection pm1 Forms: - Medication Reconciliation Form pm1 - Thank You Letter pm1 - Antibiotic Education pm1 - Prescription Opioid Use pm1 Prescriptions: - Nystatin-Triamcinolone 100,000-0.1 unit/g-% Topical Cream - apply 1 application by TOPICAL route 2 times per day; 1 tube; Refills: 0, pm1 Product Selection Permitted - Macrobid 100 mg Oral Capsule - take 1 capsule by ORAL route every 12 hours for 10 days; 20 capsule; Refills: pm1 0, Product Selection Permitted Signatures: Dispatcher [employer] EDRan Hancock MD MD cha Ballard, Brenda, RN RN Henry Sauer, [employer] pm1 Harshad Sky, RN RN jb4
[2021-08-18] MEDS ORDERED: CEFTRIAXONE 1000 MG/VIAL ONE (00:24)
[2021-08-18] MEDS ORDERED: LIDOCAINE 1% MPF 2 ML AMPULE ONE (00:24)
== END 2021-08-18 00:49 | disposition home or self-care (01) ==
LOC: ER 21:14
DX: N39.0 Urinary tract infection, site not specified (principal); B37.9 Candidiasis, unspecified
CPT/HCPCS: 81003; 81015; 81025; 87086; 87088; 96372; 99283

== ENCOUNTER 2023-11-09 13:37 | Emergency (ER) | payer OTHER, SELFPAY ==
--- OUTSIDE RECORDS SUMMARY | 2023-11-09 13:41 | XMS REPORT | Continuity of Care Document ---
Author Name Unknown Address [address] [facility] [address] [place] [address] [facility] thconnect Address [address] [facility] [address] [place] [address] Care Team Providers Care Associate Medical Director Name Role Phone Ara James Attending Clinician Unavailable Ara James Admitting Clinician Unavailable Payers Payer Name Policy Type Policy Number Effective Date Expirati on Date Source Allergies, Adverse Reactions, Alerts Allergy Name Allergy Type Status Severity Reaction(s) Onset Date Inactive Date Treating Clinician Comments Source No Known Allergie s DA Active U 02-24 00:00: 00 [facility] Procedures Procedure Date / Time Performed Performing Clinicia n Source [id number] 2022-02-25 [facility] Encounters Start Date/Time End Date/Time Encounter Type Admission Type Attending Clinicians Care Facility Care Department Encounter ID Source 2022-02-24 06:00:00 2022-02-28 15:35:00 Inpatient Ara Bernard [facility] OBPP [id number] [facility] Results Test Description Test Time Test Comments Results Result Co mments Source DRUGS OF ABUSE [id number] 11:00:00* Test Item Value Reference Range Interpretation Comme nts UR COCAINE (test code = COCAU) NEGATIVE NEGATIVE DETECTION CUT OF F: 150 ng/mL UR CANNABINOIDS (test code = CANU) POSITIVE NEGATIVE A RESULTS CALLED Michaela TIAN RNREAD BACK & CONFIRMED? [id number] [id number] 02/25/221920 RESULTS SENT FOR CONFIRMATION OF SCREEN RESULTSSEE OTHER SPECIMEN FOR CONFIRMATION RESULTS These results are to be used only for medical (ie,treatment) purposes. Unconfirmed screening results must notbe used for non-medical purposes (eg, employment testing)DETECTION CUT OFF: 50 ng/mL UR AMPHETAMINE (test code = AMPHU) NEGATIVE NEGATIVE DETECTION CUT OF F: 500 ng/mL UR BARBITURATE QUAL (test code = BARBQLU) NEGATIVE NEGATIVE DETECTION CUT OFF: 200 ng/mL UR BENZODIAZEPINE (test code = BENZU) NEGATIVE NEGATIVE DETECTION CUT OF F: 150 ng/mL UR OPIATES QUAL (test code = OPIAQLU) POSITIVE NEGATIVE A RESULTS CALLED T Rose Marie TIAN RNREAD BACK & CONFIRMED? [id number] [id number] 02/25/221921 RESULTS SENT FOR CONFIRMATION OF SCREEN RESULTSSEE OTHER SPECIMEN FOR CONFIRMATION RESULTS These results are to be used only for medical (ie,treatment) purposes. Unconfirmed screening results must notbe used for non-medical purposes (eg, employment testing)DETECTION CUT OFF: 100 ng/mL UR PHENCYCLIDINE (PCP) (test code = PHENCU) NEGATIVE NEGATIVE DETECTION C UT OFF: 25 ng/mL CANNABINOIDS CONFIRMATION [id number] 11:00:00* Test Item Value Reference Range Interpretation Comme nts DRUG CONFIRMATION BY GC/MS (test code = DRUGCON) NEGATIVE Opiate Screen, U rineTest Result Units Reference IntervalOpiates Negative ng/mL [id number] test includes Codeine and Morphine only. COMPREHENSIVE METABOLIC [id number] 11:24:00* Test Item Value Reference Range Interpretation Comme nts SODIUM (test code = NA) 141 mEq/L 135-145 N POTASSIUM (test code = K) 4.2 mEq/L 3.5-5.0 N CHLORIDE (test code = CL) 109 mEq/L 100-115 N CARBON DIOXIDE (test code = CO2) 23 mEq/L 22-31 N ANION GAP (test code = GAP) 13.10 10-20 N GLUCOSE (test code = GLU) 72 mg/dL 65-110 N BLOOD UREA NITROGEN (test code = BUN) 7 mg/dL 7-18 N GLOMERULAR FILTRATION RATE (test code = GFR) 117 ml/min >60 N The Glomerular Filtration Rate is a calculated parameterbased on serum Creatinine, patient age and sex. GFR valuesless than 60 mL/min/1.73 square meters are indicative ofChronic Kidney Disease. Values less than 15 mL/min/1.73square meters indicate Kidney failure. The calculation forGFR is based on the CKD-EPI (202) calculation. This formulais race indifferent and is the recommended formula for GFRby the National Kidney Foundation for Adults.The GFR will not calculate if the sex is unknown or if thepatient's age is <18 years. CREATININE (test code = CREAT) 0.7 mg/dL 0.5-1.0 N TOTAL PROTEIN (test code = PROT) 5.0 gm/dL 6.3-8.2 L ALBUMIN (test code = ALB) 2.0 gm/dL 3.4-4.8 L CALCIUM (test code = CA) 8.1 mg/dL 8.4-10.2 L BILIRUBIN TOTAL (test code = BILT) 0.2 mg/dL 0.2-1.0 SGOT/AST (test code = AST) 26 units/L 15-37 N SGPT/ALT (test code = ALT) 14 units/L 12-78 N ALKALINE PHOSPHATASE TOTAL (test code = ALKP) 134 units/L 46-116 H CBC W/AUTO [id number] 07:15:00* Test Item Value Reference Range Interpretation Comme nts WHITE BLOOD CELL (test code = WBC) 12.0 K/mm3 6.5-12.3 Results verified by repeat analysis RED BLOOD CELL (test code = RBC) 3.81 M/mm3 3.51-4.69 N HEMOGLOBIN (test code = HGB) 11.0 g/dL 10.1-13.8 N HEMATOCRIT (test code = HCT) 33.1 % 32.5-41.8 N MEAN CELL VOLUME (test code = MCV) 86.9 fL 84.6-96.6 N MEAN CELL HGB (test code = MCH) 28.9 pg 27.3-33.9 N MEAN CELL HGB CONCETRATION (test code = MCHC) 33.2 gm/dL 32.0-34.2 N RED CELL DISTRIBUTION WIDTH (test code = RDW) 14.0 % 12.2-16.3 N PLATELET COUNT (test code = PLT) 163 K/mm3 134-363 N MEAN PLATELET VOLUME (test code = MPV) 11.4 fL 9.2-12.7 N NEUTROPHIL % (test code = NT%) 69.0 % 57.9-77.3 N LYMPHOCYTE % (test code = LY%) 26.2 % 14.5-29.7 N MONOCYTE % (test code = MO%) 4.0 % 3.6-10.2 N EOSINOPHIL % (test code = EO%) 0.3 % 0.0-3.0 N BASOPHIL % (test code = BA%) 0.2 % 0.1-0.9 N NEUTROPHIL # (test code = NT#) 8.3 K/mm3 LYMPHOCYTE # (test code = LY#) 3.2 K/mm3 MONOCYTE # (test code = MO#) 0.5 K/mm3 EOSINOPHIL # (test code = EO#) 0.04 K/mm3 BASOPHIL # (test code = BA#) 0.0 K/mm3 RBC MORPHOLOGY REQUIRED (test code = RBCM) NORMAL NORMAL PLATELET MORPHOLOGY REQUIRED (test code = PLTMR) NORMAL NORMAL HGB [id number] 07:55:00* Test Item Value Reference Range Interpretation Comme nts HEMOGLOBIN (test code = HGB) 10.6 g/dL 10.1-13.8 N HEMATOCRIT (test code = HCT) 32.1 % 32.5-41.8 L CAPILLARY BLOOD [id number] 14:32:00* Test Item Value Reference Range Interpretation Comme nts CAPILLARY BLOOD GAS PH (test code = PHC) 7.089 7.35-7.45 LL CAPILLARY BLOOD GAS PCO2 (te st code = PCO2C) 66.4 mmHg CAPILLARY BLOOD GAS PO2 (neetu t code = PO2C) 10.0 mmHg CBG HCO3 (test code = HCO3C) 19.6 meq/L CBG BASE EXCESS (test code = BEC) -11.2 CAPILLARY BLOOD GAS TYPE (te st code = TYPEC) CBLV CAPILLARY BLOOD [id number] 14:30:00* Test Item Value Reference Range Interpretation Comme nts CAPILLARY BLOOD GAS PH (test code = PHC) 7.020 7.35-7.45 LL CAPILLARY BLOOD GAS PCO2 (te st code = PCO2C) 85.4 mmHg CAPILLARY BLOOD GAS PO2 (neetu t code = PO2C) 11.7 mmHg CBG HCO3 (test code = HCO3C) 21.6 meq/L CBG BASE EXCESS (test code = BEC) -11.3 CAPILLARY BLOOD GAS TYPE (te st code = TYPEC) CBLA COMPREHENSIVE METABOLIC [id number] 11:11:00* Test Item Value Reference Range Interpretation Comme nts SODIUM (test code = NA) 134 mEq/L 135-145 L POTASSIUM (test code = K) 3.8 mEq/L 3.5-5.0 N CHLORIDE (test code = CL) 102 mEq/L 100-115 N CARBON DIOXIDE (test code = CO2) 22 mEq/L 22-31 N ANION GAP (test code = GAP) 13.80 10-20 N GLUCOSE (test code = GLU) 82 mg/dL 65-110 N BLOOD UREA NITROGEN (test code = BUN) 8 mg/dL 7-18 N GLOMERULAR FILTRATION RATE (test code = GFR) 117 ml/min >60 N The Glomerular Filtration Rate is a calculated parameterbased on serum Creatinine, patient age and sex. GFR valuesless than 60 mL/min/1.73 square meters are indicative ofChronic Kidney Disease. Values less than 15 mL/min/1.73square meters indicate Kidney failure. The calculation forGFR is based on the CKD-EPI (202) calculation. This formulais race indifferent and is the recommended formula for GFRby the National Kidney Foundation for Adults.The GFR will not calculate if the sex is unknown or if thepatient's age is <18 years. CREATININE (test code = CREAT) 0.7 mg/dL 0.5-1.0 N TOTAL PROTEIN (test code = PROT) 6.0 gm/dL 6.3-8.2 L ALBUMIN (test code = ALB) 2.4 gm/dL 3.4-4.8 L CALCIUM (test code = CA) 8.3 mg/dL 8.4-10.2 L BILIRUBIN TOTAL (test code = BILT) 0.6 mg/dL 0.2-1.0 N SGOT/AST (test code = AST) 38 units/L 15-37 H SGPT/ALT (test code = ALT) 26 units/L 12-78 N ALKALINE PHOSPHATASE TOTAL (test code = ALKP) 188 units/L 46-116 H CBC W/AUTO [id number] 09:26:00* Test Item Value Reference Range Interpretation Comme nts WHITE BLOOD CELL (test code = WBC) 6.7 K/mm3 6.5-12.3 N RED BLOOD CELL (test code = RBC) 4.37 M/mm3 3.51-4.69 N HEMOGLOBIN (test code = HGB) 12.6 g/dL 10.1-13.8 N HEMATOCRIT (test code = HCT) 38.1 % 32.5-41.8 N MEAN CELL VOLUME (test code = MCV) 87.2 fL 84.6-96.6 N MEAN CELL HGB (test code = MCH) 28.8 pg 27.3-33.9 N MEAN CELL HGB CONCETRATION ( test code = MCHC) 33.1 gm/dL 32.0-34.2 N RED CELL DISTRIBUTION WIDTH (test code = RDW) 13.5 % 12.2-16.3 N PLATELET COUNT (test code = PLT) 139 K/mm3 134-363 N MEAN PLATELET VOLUME (test c ode = MPV) 12.0 fL 9.2-12.7 N NEUTROPHIL % (test code = NT%) 65.9 % 57.9-77.3 N LYMPHOCYTE % (test code = LY%) 28.1 % 14.5-29.7 N MONOCYTE % (test code = MO%) 5.1 % 3.6-10.2 N EOSINOPHIL % (test code = EO%) 0.3 % 0.0-3.0 N BASOPHIL % (test code = BA%) 0.3 % 0.1-0.9 N NEUTROPHIL # (test code = NT#) 4.4 K/mm3 LYMPHOCYTE # (test code = LY#) 1.9 K/mm3 MONOCYTE # (test code = MO#) 0.3 K/mm3 EOSINOPHIL # (test code = EO#) 0.02 K/mm3 BASOPHIL # (test code = BA#) 0.0 K/mm3 RBC MORPHOLOGY REQUIRED (neetu t code = RBCM) NORMAL NORMAL PLATELET MORPHOLOGY REQUIRED (test code = PLTMR) NORMAL NORMAL AB HIV 1 08:04:00* Test Item Value Reference Range Interpretation Comme nts AB HIV 1 2 (test code = XLB65NS) NONREACTIVE NONREACTIVE Done by [employer] 4th Gen HIV Ag/Ab Combo Screen AG HEPATITIS B [id number] 08:04:00* Test Item Value Reference Range Interpretation Comme nts AG HEPATITIS B SURFACE (test code = HBSAG) NONREACTIVE NONREACTIVE AB HEPATITIS C [id number] 08:04:00* Test Item Value Reference Range Interpretation Comme nts AB HEPATITIS C (test code = HCVAB) NONREACTIVE NONREACTIVE SIGNAL TO CUTOFF (test code = CUTOFF) <0.02 <0.80 N RUBELLA [id number] 08:04:00* Test Item Value Reference Range Interpretation Comme nts RUBELLA SCREEN (test code = RUBSC) 27.7 IUnit/ml Results >10.0IUn its/ml are considered positive inaccordance with the CLSI guidelines and based on the WHO International Standard for Anti-Rubella serum as anindicator of immune status and a breakpoint to detect mostseropositive persons. AB [id number] 08:04:00* Test Item Value Reference Range Interpretation Comme nts AB TREPONEMA (test code = TREPAB) NONREACTIVE NONREACTIVE CBC W/AUTO [id number] 06:33:00* Test Item Value Reference Range Interpretation Comme nts WHITE BLOOD CELL (test code = WBC) 8.3 K/mm3 6.5-12.3 N RED BLOOD CELL (test code = RBC) 4.60 M/mm3 3.51-4.69 N HEMOGLOBIN (test code = HGB) 13.9 g/dL 10.1-13.8 H HEMATOCRIT (test code = HCT) 39.9 % 32.5-41.8 N MEAN CELL VOLUME (test code = MCV) 86.7 fL 84.6-96.6 N MEAN CELL HGB (test code = MCH) 30.2 pg 27.3-33.9 N MEAN CELL HGB CONCETRATION ( test code = MCHC) 34.8 gm/dL 32.0-34.2 H RED CELL DISTRIBUTION WIDTH (test code = RDW) 13.5 % 12.2-16.3 N PLATELET COUNT (test code = PLT) 185 K/mm3 134-363 N MEAN PLATELET VOLUME (test c ode = MPV) 12.0 fL 9.2-12.7 N NEUTROPHIL % (test code = NT%) 65.3 % 57.9-77.3 N LYMPHOCYTE % (test code = LY%) 29.1 % 14.5-29.7 N MONOCYTE % (test code = MO%) 4.6 % 3.6-10.2 N EOSINOPHIL % (test code = EO%) 0.4 % 0.0-3.0 N BASOPHIL % (test code = BA%) 0.4 % 0.1-0.9 N NEUTROPHIL # (test code = NT#) 5.4 K/mm3 LYMPHOCYTE # (test code = LY#) 2.4 K/mm3 MONOCYTE # (test code = MO#) 0.4 K/mm3 EOSINOPHIL # (test code = EO#) 0.03 K/mm3 BASOPHIL # (test code = BA#) 0.0 K/mm3 RBC MORPHOLOGY REQUIRED (neetu t code = RBCM) NORMAL NORMAL PLATELET MORPHOLOGY REQUIRED (test code = PLTMR) NORMAL NORMAL HEMOGLOBIN [id number] 19:22:48* Test Item Value Reference Range Interpretation Comme nts HEMOGLOBIN A1 (test code = 2575) 97.4 % 95.0-98.5 HEMOGLOBIN A2 (test code = 2576) 2.6 % 1.6-3.7 HEMOGLOBIN F () (test code = 2722) 0.0 % 0.0-2.0 HEMOGLOBIN S (test code = 2724) NONE % NONE DETECTED HEMOGLOBIN C (test code = 2726) NONE % NONE DETECTED OTHER HEMOGLOBIN VARIANT (test code = 23731) NONE DETEC % NONE DETECTED PATHOLOGIST'S INTERPRETATION (test code = 2577) (NOTE) NO ABNORMAL HEMOGLOBINS IDENTIFIED. MECHELLE DENT M.D. CT/NG, NAAT, [id number] 17:58:46* Test Item Value Reference Range Interpretation Comme nts GONORRHEA, NAAT (test code = 85164) NEGATIVE NEGATIVE IMPORTANT NO RODRIGUE: SEE ANNOUNCEMENT AT [email or web address] [email or web address] Note: Assay methodology is nucleic acid amplification by intensive care anaesthetist mediated amplification (TMA) utilizing the Aptima Combo 2 Assay. CHLAMYDIA, NAAT (test code = 98900) NEGATIVE NEGATIVE IMPORTANT NO RODRIGUE: SEE ANNOUNCEMENT AT [email or web address] [email or web address] Note: Assay methodology is nucleic acid amplification by intensive care anaesthetist mediated amplification (TMA) utilizing the Aptima Combo 2 Assay. THC METABOLITE, QUANT, [id number] 17:13:23* Test Item Value Reference Range Interpretation Comme nts CARBOXY-THC INTERP (test code = 98413) Positive A CARBOXY-THC QNT (test code = 81349) 460 ng/mL <15 H Reference range indicates cutoff for positive result determination. Specimen Type: Urine Urine drug and metabolite concentrations are dependent on manyfactors, including patient compliance, drug dosing, dosing interval,individual variation in drug absorption and metabolism, urineconcentration, and limitations of testing. Assay is intended formedical purposes only, not for forensic use. This test was developed and its performance characteristicsdetermined by [facility] ([facility]). It has not beencleared or approved by the U.S. Food and Drug Administration (FDA).The FDA has determined that such clearance or approval is notnecessary. This test is used for clinical purposes and should not beregarded as investigational or for research. [facility] is qualified toperform high complexity testing under the Clinical LaboratoryImprovement Amendments (CLIA). TESTING PERFORMED AT [facility] [address] [place] [address], [facility] [address] [address] CLIA NO: [id number] UNLESS OTHERWISE INDICATED, ALL TESTING PERFORMED [facility] [address] [place] [address] CHAINSAW MECHANIC: SALUD CUENCA M.D. CLIA NUMBER [id number] [facility] [place]. [id number] VARICELLA ZOSTER [id number] 15:39:26* Test Item Value Reference Range Interpretation Comme nts VARICELLA ZOSTER IgG (test code = 08894) 655 INDEX SEE BELOW INTERPRETATI ON VZV IgG NEGATIVE . . . . . . . . . . . . INDEX <135 EQUIVOCAL. . . . . . . . . . . . INDEX 135-164 NOTE: CONSIDER RETESTING IN A CLINICALLY SUITABLE PERIOD OF TIME, NO SOONER THAN 1-2 WEEKS. POSITIVE . . . . . . . . . . . . INDEX >=165 DRUG ABUSE SCREEN 10 REFLEX [id number] 06:49:02* Test Item Value Reference Range Interpretation Comments AMPHETAMINES (test code = 3201) NEGATIVE NEGATIVE BARBITURATES (test code = 3202) NEGATIVE NEGATIVE BENZODIAZEPINES (test code = 3203) NEGATIVE NEGATIVE CANNABINOIDS (test code = 3204) SEE REFLEX TESTING NEGATIVE A COCAINE METABOLITE (test code = 3205) NEGATIVE NEGATIVE OPIATES (test code = 3209) NEGATIVE NEGATIVE OXYCODONE (test code = 35249) NEGATIVE NEGATIVE PHENCYCLIDINE (test code = 3210) NEGATIVE NEGATIVE METHADONE (test code = 3207) NEGATIVE NEGATIVE BUPRENORPHINE (test code = 94068) NEGATIVE NEGATIVE SOURCE (test code = 382875) URINE SEE BELOW FO R THRESHOLDS AND IMPORTANT METHOD NOTES ANALYTE SCREENING CUTOFF CONFIRMATORY CUTOFF ___AMPHETAMINES 500 NG/ML 100 NG/MLBARBITURATES 200 NG/ML 100 NG/MLBENZODIAZEPINES 200 NG/ML 100 NG/MLCANNABINOIDS (THC) 20 NG/ML 15 NG/MLCOCAINE METABOLITES 150 NG/ML 100 NG/MLOPIATE METABOLITES 300 NG/ML 100 NG/MLOXYCODONE 100 NG/ML 100 NG/MLPHENCYCLIDINE (PCP) 25 NG/ML 25 NG/MLMETHADONE 300 NG/ML 100 NG/MLBUPRENORPHINE 5 NG/ML 5 NG/ML NOTE: Screening methodology is qualitative Enzyme Immunoassay.The screening method may be less sensitive for certain medicationsincluding clonazepam and lorazepam in the benzodiazepine assay andtramadol or fentanyl in the opiate assay, amongst others. Patientcompliance, hydration status, timing and dose of medications, drugabsorption and specimen quality may affect screening assay.For clinical discrepancies, consider directed testing for specificcompounds or contact the laboratory [facility] for [facility]ory testing. This test is specified for medicalpurposes only. It is not valid for forensic use. OBSTETRIC PANEL + [id number] 04:24:57* Test Item Value Reference Range Interpretation Comme nts WBC (test code = 1001) 9.3 K/UL 3.5-11.0 RBC (test code = 1002) 4.49 M/UL 3.80-5.40 HEMOGLOBIN (test code = 1003) 13.8 G/DL 11.5-15.5 HEMATOCRIT (test code = 1004) 39.3 % 34.0-45.0 MCV (test code = 1005) 87.5 fL 80.0-99.0 MCH (test code = 1006) 30.7 PG 25.0-33.0 MCHC (test code = 1007) 35.1 G/DL 31.0-36.0 RDW (test code = 1038) 12.7 % 11.5-15.0 NEUTROPHILS (test code = 1008) 63.8 % LYMPHOCYTES (test code = 1010) 31.3 % MONOCYTES (test code = 1011) 4.2 % EOSINOPHILS (test code = 1012) 0.4 % BASOPHILS (test code = 1013) 0.1 % IMMATURE GRANULOCYTES (test code = 1036) 0.2 % NUCLEATED RBCS (test code = 1065) 0.0 /100 WBC'S See_Comment [Automated me ssage] The system which generated this result transmitted reference range: 0.0. The reference range was not used to interpret this result as normal/abnormal. PLATELET COUNT (test code = 1015) 297 K/UL 130-400 ABSOLUTE NEUTROPHILS (test code = 1066) 5.91 K/UL 1.50-7.50 ABSOLUTE LYMPHOCYTES (test code = 1067) 2.90 K/UL 1.00-4.00 ABSOLUTE MONOCYTES (test code = 1068) 0.39 K/UL 0.20-1.00 ABSOLUTE EOSINOPHILS (test code = 1040) 0.04 K/UL 0.00-0.50 ABSOLUTE BASOPHILS (test code = 1069) 0.01 K/UL 0.00-0.20 ABS IMMATURE GRANULOCYTES (test code = 1020) 0.02 K/UL 0.00-0.10 ABS NUCLEATED RBCS (test code = 69591) 0.00 K/UL 0.00-0.11 BLOOD TYPE AND RH (test code = 3901) O POSITIVE A HISTORICAL RECORD CHECK FOR PREVIOUS RESULTS IS NOT PERFORMED.THESE RESULTS SHOULD BE CORRELATED WITH RESULTS OF PRIOR BLOODTYPING AND ANTIBODY SCREEN STUDIES. ANTIBODY SCREEN (test code = 3902) NEGATIVE NEGATIVE A HISTORICAL RECORD CHECK FOR PREVIOUS RESULTS IS NOT PERFORMED.THESE RESULTS SHOULD BE CORRELATED WITH RESULTS OF PRIOR BLOODTYPING AND ANTIBODY SCREEN STUDIES. RUBELLA ANTIBODY SCREEN (test code = 4600) 43 IU/ML SEE BELOW INTERPRETATION RUBELLA IgG NON-REACTIVE/NON-IMM UNE . . . . . . . IU/ML <10 REACTIVE/IMMUNE . . . . . . . . . . . IU/ML >=10 RUBELLA IgG INTERP (test code = 74962) REACTIVE REACTIVE HEPATITIS B SURF AG (test code = 2739) NON-REACTIVE NON-REACTIVE RPR (test code = 10905) NON-REACTIVE NON-REACTIVE RPR TITER (test code = 3500) NOT INDIC. TITER NOT INDIC. HIV 1/2 4TH GEN, RFLX CONF (test code = 3514) NON-REACTIVE NON-REACTIVE HEPATITIS C REFLEX [id number] 04:24:57* Test Item Value Reference Range Interpretation Comme nts HEPATITIS C ANTIBODY (test c ode = 4675) NON-REACTIVE NON-REACTIVE [id number] 03:37:21* Test Item Value Reference Range Interpretation Comme nts RPR RESULT (test code = 3501) NON-REACTIVE NON-REACTIVE RPR TITER (test code = 3500) NOT INDIC. TITER NOT INDIC. CULTURE, [id number] 09:57:32SPECIMEN NUMBER: [id number] CULTURE, URINE SPECIMEN NUMBER: [id number] SPECIMEN COMMENT: URINE SOURCE: URINE REPORT STATUS: FINAL FINAL REPORT: 07/16/2021 >100,000 CFU/ML UROGENITAL DOMINIC PRESENT NOCOMMON PATHOGENS UNLESS OTHERWISE INDICATED, ALL TESTING PERFORMED [facility] [address] [place] [address] CHAINSAW MECHANIC: SALUD CUENCA M.D. CLIA NUMBER [id number] [facility] [place] [place]. [id number] Notes Date/Time Note Provider Source 2022-03-01 07:41:00 [id number] [facility] [place] [id number] PATIENT NAME: IRAIDA RAMIREZ ADMIT DATE: 02/24/22 ACCOUNT NO: [id number] ROOM NO: [facility] AGE: 31 SEX: F ADMITTING PHYSICIAN: Ara James MD ATTENDING PHYSICIAN: Ara James MD OPERATION DATE: 02/25/2022 PREOPERATIVE DIAGNOSES: 1. Intrauterine at 38.5 weeks. 2. Breech presentation. 3. Prior history of intrauterine device. 4. Marijuana use. POSTOPERATIVE DIAGNOSES: 1. Intrauterine at 38.5 weeks. 2. Breech presentation. 3. Prior history of intrauterine device. 4. Marijuana use. PROCEDURE: Primary low transverse via Pfannenstiel. SURGEON: Ara James M.D. RIPSAW MATCHER: ANESTHESIA: COMPLICATIONS: None. ESTIMATED BLOOD LOSS: 800 mL. INTRAVENOUS FLUID: 800 mL of LR. URINE OUTPUT: 60 mL at the end of the procedure. FINDINGS: Male infant in footling breech presentation, Apgars 6 and 9, weight 3910 g, to nursery. Placenta 3-vessel cord intact. Uterus, tubes, and ovaries were within normal limits. PROCEDURE IN DETAIL: After risks, benefits, alternatives and the nature of the procedure were discussed with the patient at length, she voiced understanding. All her questions were answered to satisfaction and she signed the consent. She was taken to the operating room, where epidural anesthesia was found to be adequate. She was then prepared and draped in the normal sterile fashion in dorsal supine position with a leftward tilt. A Pfannenstiel skin incision was done with a scalpel and carried down to the underlying layer of fascia, which was incised in the midline and extended laterally with the Pepper scissors. The fascial borders were serially grasped with Mele clamps, elevated, and the PATIENT NAME: IRAIDA RAMIREZ underlying layer of muscles were dissected off bluntly. The muscles were in the midline as well as the peritoneum. A bladder blade was then inserted. The lower segment of the uterus was incised in the midline and extended laterally with the sheetfed press operator's fingers. The buttocks was delivered atraumatically, followed by both legs and the trunk at once just by using the usual maneuvers and the fundal pressure. The right arm was brought down to the chest and delivered atraumatically. The fetus was rotated with a wet towel and the other arm was delivered in the same fashion. Then, the head was delivered atraumatically. Nose and mouth were suctioned. Cord clamped and cut and the baby was handed off to the awaiting baby care team. Placenta was delivered spontaneously. The uterus was exteriorized and cleared of all clots and debris. The uterine incision was closed with 1-0 chromic in the usual locked fashion. Several [id number] stitches using the same suture was placed to obtain excellent hemostasis. The uterus was returned to the abdomen. The gutters were cleared of all clots and debris, excellent hemostasis was noted. The fascia was closed with 0 Vicryl in a running fashion, excellent hemostasis was noted. Irrigation with warm normal saline was done, excellent hemostasis was noted. The subcutaneous layer was closed with 3-0 Vicryl in a running fashion, excellent hemostasis was noted. The skin was closed with marleny. All counts were correct throughout and after the procedure. The patient was taken to the recovery room in awake and stable condition. PATHOLOGY: Placenta. Dictated By: Ara James MD Date Dictated: 03/01/2022 07:41:40 Date Transcribed: 03/01/2022 10:50:51 ANDERSON/SHELLEY/NELSON Receipt ID: [id number] Authenticated by Ara James MD On 03/03/2022 09:19:19 PM at 0919 PATIENT NAME: IRAIDA RAMIREZ [facility] 2022-02-27 18:55:00 [facility] ([facility] OB Disch REPORT#:[id number] REPORT STATUS: Signed DATE:02/27/22 TIME: 185 PATIENT: IRAIDA RAIMREZ UNIT #: [id number] ROOM/BED: A : 88 AGE: 31 SEX: F ATTEND: Ara James MD ADM AUTHOR: Ara James MD * ALL edits or amendments must be made on the electronic/computer document * Subjective Subjective Patient reports: Patient reports: Yes: normal lochia, pain management effective, tolerating po well, voiding well, tolerating ambulation, flatus. No: complaints. Objective General VS: Vital Signs Date Temp Pulse Resp B/P B/P Mean Pulse Ox FiO2 02/27 97.8-98.8 78-84 18 121-134/80-84 94.0-100.6 97 Last Documented: Result Date Time B/P 134/84 02/27 1614 B/P Mean 100.6 02/27 1614 Temp 98.8 02/27 161 Pulse 84 02/27 1615 Resp 18 02/27 1615 Pulse Ox 97 02/27 0034 PATIENT WEIGHT: Weight (lb): Weight (oz): Weight (kg): 118.820117 Physical Exam Neuro: Exam: alert, oriented x3, normal speech Abdomen: post gravid, soft, no abnormal tenderness Incision site: well approximated edges, marleny intact, dressing clean dry, dry, no drainage, no inflammation Uterus: involution appropriate, non-tender Fundus: firm, below the umbilicus, non-tender Discharge Summary General Assessment: nml progress Hospital course: induction of labor, primary LTCS in labor (baby flipped to breech), nml postop/postpart care Discharge to: Home/Self Care Discharge diagnosis: full-term uncomp delivery, anemia (acute blood loss) Plan: routine care Discharge Instructions Diet: Regular Activity: As Tolerated, No Driving, No [place] for 6 Wks Additional discharge routines: PCP Follow-Up Discharge meds: Continue taking these medications: SERTRALINE (ZOLOFT) 25 MG TAB 25 MILLIGRAM ORAL DAILY. ALBUTEROL (PROAIR HFA 90 MCG/ACT 8.5 GM) 90 MCG INHALER 2 PUFF INHALATION RT - EVERY 4 HOURS NEEDED. as needed for DYSPNEA/ WHEEZING PNV/FE FUM/FA ( MULTIVITAMIN) 28 MG IRON-800 MCG TAB 1 TABLET ORAL DAILY. Start taking the following new medications: oxyCODONE (oxyCODONE) 10 MG TAB 10 MILLIGRAM ORAL EVERY 6 HOURS NEEDED. as needed for SEVERE PAIN (SCALE 7-10) Qty = 30 No Refills DOCUSATE SODIUM (COLACE) 100 MG CAP 200 MILLIGRAM ORAL BEDTIME. as needed for CONSTIPATION Qty = 20 No Refills IBUPROFEN (MOTRIN) 600 MG TAB 600 MILLIGRAM ORAL FOUR TIMES DAILY NEEDED. as needed for PAIN Qty = 25 No Refills oxyCODONE (oxyCODONE) 5 MG TAB 5 MILLIGRAM ORAL EVERY 6 HOURS NEEDED. as needed for wound pain Qty = 28 No Refills Add'l Follow-up Appointments PCP follow-up: PCP: Ara James MD PCP follow up timeframe: this Tuesd for marleny removal Appt. date: 03/02/22 at 1857 RPT #:[id number] END OF REPORT [facility] 2022-02-26 11:29:00 [facility] ([facility]) OB Postpart Progr Note REPORT#:[id number] REPORT STATUS: Signed DATE:02/26/22 TIME: 1129 PATIENT: IRAIDA RAMIREZ UNIT #: [id number] ROOM/BED: [address] : 88 AGE: 31 SEX: F ATTEND: Ara James MD ADM AUTHOR: Ara James MD * ALL edits or amendments must be made on the electronic/computer document * Subjective Subjective Patient reports: Patient reports: Yes normal lochia, Yes pain management effective, Yes tolerating po well, Yes voiding well, Yes flatus, No no complaints Comments: SEEN AROUND 8:30 AM Objective Nursing Documentation Review Nursing Data: The data set between the solid lines has been imported from nursing documentation. Any exceptions have been noted below under Provider comments. Feeding preference: Post hemorrhage risk score: Medium Risk for Hemorrhage. Provider comments on imported nursing data: [] General VS: Vital Signs: Date Time Temp Pulse Resp B/P B/P Pulse O2 O2 Flow FiO2 Mean Ox Delivery Rate 02/26 0805 98.3 80 20 110/65 02/26 0359 98.4 78 18 130/76 02/26 0042 98.2 74 18 127/68 02/25 202 98.5 71 18 135/78 02/25 1740 97.4 59 18 138/79 100 02/25 1631 105.0 02/25 1631 133/87 02/25 1630 56 20 99 02/25 1618 98.0 02/25 1618 139/69 02/25 1616 58.0 02/25 1616 71/53 02/25 1615 56 29 100 02/25 1601 102.0 02/25 1601 154/71 02/25 1600 67 34 100 02/25 1559 112.0 02/25 1559 143/90 02/25 1545 58 53 99 02/25 1531 89.0 02/25 1531 144/62 02/25 1530 78 43 100 02/25 1518 92.0 02/25 1518 137/66 02/25 1515 58 20 100 02/25 1500 61 23 100 02/25 1454 91.0 02/25 1454 130/64 02/25 1452 97.4 16 100 02/25 1318 119.0 02/25 1318 59 186/83 02/25 1315 122.0 02/25 1315 58 176/85 02/25 1257 109.0 02/25 1257 59 159/76 02/25 1255 112.0 02/25 1255 67 184/78 PATIENT WEIGHT: Weight (lb): Weight (oz): Weight (kg): 118.974902 Physical Exam Neuro: Exam: alert, oriented x3, normal speech Abdomen: soft, no abnormal tenderness, no guarding Incision site: marleny intact, dry, no drainage, no inflammation Uterus: firm, involution appropriate, non-tender Fundus: firm, below the umbilicus, non-tender Diagnosis, Assessment Plan Diagnosis, Assessment Plan Assessment: nml progress Plan: routine care at 1129 RPT #:[id number] END OF REPORT [facility] 2022-02-25 14:47:00 [facility] ([facility]) Brief Op Note REPORT#:[id number] REPORT STATUS: Signed DATE:02/25/22 TIME: 144 PATIENT: IRAIDA RAMIREZ UNIT #: [id number] ROOM/BED: [id number] : 88 AGE: 31 SEX: F ATTEND: Ara James MD ADM AUTHOR: Aneudy Saravia MD * ALL edits or amendments must be made on the electronic/computer document * Op/Inv Proc Note - Brief Pre-procedure diagnosis: 1. Intrauterine at 38.4 weeks. 2. Prior history of intrauterine demise at 21 weeks. 3. Depression and anxiety, stable. 4. Marijuana use. 5. pyelectasis. 6. Breech presentation Post-procedure diagnosis: same as pre procedure dx Procedures performed: primary LTCS Primary Surgeon: shaq Equipment Inspector(s): carlos Anesthesia: epidural anesthetic Findings: baby boy CHRIS at 3910g deliv as d foot breech 3910g, 8-10, ap 6,9 uterus closed s being exteriorized Complications: none Estimated blood loss in ml's: 600 Specimens removed/altered: placenta to path Drain(s): Briceno Catheter Placed Fluids: 600 cc Urine output: 60 cc Disposition: PACU Counts: Sponge count: correct Instrument count: correct Needle count: correct at 1450 RPT #:[id number] END OF REPORT [facility] 2022-02-25 09:16:00 [facility] ([facility]) Clinical Note REPORT#:[id number] REPORT STATUS: Signed DATE:02/25/22 TIME: 915 PATIENT: IRAIDA RAMIREZ UNIT #: [id number] ROOM/BED: [id number] : 88 AGE: 31 SEX: F ATTEND: Ara James MD ADM AUTHOR: Ara James MD * ALL edits or amendments must be made on the electronic/computer document * Clinical Note Note: BEDSIDE SCAN BREECH WILL PROCEED WITH CD at 0917 RPT #:[id number] END OF REPORT [facility] 2022-02-24 13:00:[id number] [facility] [address] [place], [place] [address] PATIENT NAME: IRAIDA RAMIREZ ADMIT DATE: 02/24/22 ACCOUNT NO: [id number] ROOM NO: [facility] AGE: 31 SEX: F ADMITTING PHYSICIAN: Ara James MD ATTENDING PHYSICIAN: Ara James MD ADMISSION DATE: 02/24/2022 06:00:00 ADMITTING DIAGNOSES: 1. Intrauterine at 38.4 weeks. 2. Prior history of intrauterine demise at 21 weeks. 3. Depression and anxiety, stable. 4. Marijuana use. 5. pyelectasis. CHIEF COMPLAINT: "I am ." HISTORY OF PRESENT ILLNESS: A 31-year-old at 38.4 weeks, who is admitted for induction of labor due to the conditions above. She is a patient of Dr. Mustafa, who transferred her care for delivery at [facility]. I have been following her as outpatient for MFM scans. No complaints. PAST OBSTETRICAL HISTORY: Spontaneous vaginal delivery at 21 weeks with demise. PAST MEDICAL HISTORY: Asthma, depression and anxiety, stable on Zoloft 25 mg daily. PAST SURGICAL HISTORY: None. FAMILY HISTORY: Noncontributory. SOCIAL HISTORY: Denies tobacco or alcohol. She uses marijuana, but she is cutting down. PHYSICAL EXAMINATION: GENERAL: Alert and oriented x3. VITAL SIGNS: Within normal limits. HEENT: Normocephalic, atraumatic. LUNGS: Clear to auscultation bilaterally. HEART: S1, S2, regular, without murmur or rub. ABDOMEN: Bowel sounds positive, soft, nontender. EXTREMITIES: No edema. PELVIC: By RN, cervix was closed, thick and high. PLAN: 1. Cervical ripening. 2. Pitocin 1, cervix is favorable. 3. Post- urological evaluation. PATIENT NAME: IRAIDA RAMIREZ Dictated By: Ara James MD Date Dictated: 02/24/2022 13:00:34 Date Transcribed: 02/24/2022 18:50:50 ANDERSON/PAR Receipt ID: [id number] Authenticated by Ara James MD On 02/27/2022 02:01:18 PM at 0201 PATIENT NAME: IRAIDA RAMIREZ [facility] 2022-02-24 08:49:00 [facility] ([facility]) OB Admission / H P REPORT#:[id number] REPORT STATUS: Signed DATE:02/24/22 TIME: 848 PATIENT: IRAIDA RAMIREZ UNIT #: [id number] ROOM/BED: [address] : 88 AGE: 31 SEX: F ATTEND: Ara James MD ADM AUTHOR: Ara James MD * ALL edits or amendments must be made on the electronic/computer document * OB History Chief complaint: I AM HPI: see dictated H P Past History Allergies: Coded Allergies: No Known Allergies (02/24/22) at 1301 RPT #:[id number] END OF REPORT [facility]
[2023-11-09] MEDS ORDERED: predniSONE 20 MG TAB ONE (14:19)
[2023-11-09] MEDS ORDERED: IBUPROFEN 400 MG TAB ONE (14:19)
[2023-11-09 15:48] LABS: SARS-CoV-2 Antigen CONTROL BLUE LINE VIS/BG OK; SARS-CoV-2 Antigen Rapid Res Negative (Negative)
--- NOTE | 2023-11-09 16:12 | EDPHYS ---
Physician Documentation [facility] Name: Melonie Fuller Age: 33 yrs Sex: Female : 1990 Arrival Date: 11/09/2023 Time: 13:37 Bed 12 Private MD: ED Physician Abril Wong HPI: 11/08 14:13 This 33 yrs old Female presents to ER via Ambulatory with complaints of Asthma sd2 Exacerbation, Breathing Difficulty. 14:13 33 yo F presents with CC of asthma exacerbation. Reports 2 day hx of allergies that sd2 caused her asthma to worsen with SOB and wheezing and then caused her to have a panic attack. 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 Out of her inhaler and medications for asthma at home. No fever, vomiting, diarrhea or sick contacts. Also reports head pressure and pressure behind her eyes with eye redness. . INSOLE PRESSER: 13:43 LMP 10/10/2023, unknown db Historical: - Allergies: 13:46 No Known Allergies; db - PMHx: 13:46 Anxiety; depressive disorder; Asthma; db - Immunization history:: Adult Immunizations unknown. - Infectious Disease History:: Denies. - Social history:: Smoking status: Reported history of juuling and/or vaping. ROS: 14:13 Constitutional: Negative for fever, chills, and weight loss, sd2 14:13 Cardiovascular: Negative for chest pain, palpitations, and edema, 14:13 Abdomen/GI: Negative for abdominal pain, nausea, vomiting, diarrhea. MS/Extremity: Negative for injury and deformity, Skin: Negative for injury, rash, and discoloration, 14:13 Eyes: Positive for pressure, Negative for blurry vision, 14:13 ENT: Positive for sinus congestion, sinus pain, Negative for injury or acute deformity, 14:13 Respiratory: Positive for cough, shortness of breath, wheezing, 14:13 Neuro: Positive for headache, Negative for altered mental status, loss of consciousness, Exam: 14:13 Constitutional: This is a well developed, well nourished patient who is awake, alert, sd2 and in no acute distress. Head/Face: Normocephalic, atraumatic. Eyes: EOMI, conjunctival injection noted bilaterally R>L ENT: Nares patent. Mucous membranes moist. Sinus tenderness present to maxillary areas bilaterally. Chest/axilla: Normal chest wall appearance and motion. Nontender with no deformity. Cardiovascular: Regular rate and rhythm with a normal S1 and S2. No gallops, murmurs, or rubs. 2+ distal pulses. Respiratory: Lungs have equal breath sounds bilaterally, clear to auscultation and percussion. No rales, rhonchi or wheezes noted. No increased work of breathing, no retractions or nasal flaring. Abdomen/GI: Soft, non-tender, with normal bowel sounds. No guarding or rebound. No evidence of tenderness throughout. Skin: Warm, dry with normal turgor. Normal color with no rashes, no lesions, and no evidence of cellulitis. MS/ Extremity: Pulses equal, no cyanosis. Neurovascular intact. Full, normal range of motion. Neuro: Awake and alert, GCS 15, oriented to person, place, time, and situation. Cranial nerves II-XII grossly intact. Motor strength 5/5 in all extremities. Sensory grossly intact. Cerebellar exam normal. Normal gait. Vital Signs: 13:43 BP 117 / 101; Pulse 89; Resp 18; Temp 98.6; Pulse Ox 100% ; Weight 113.4 kg; Height 5 db ft. 0 in. ; 16:35 BP 120 / 94; Pulse 86; Resp 19; Temp 98.4; Pulse Ox 100% ; me1 13:43 Body Mass Index 48.83 (113.40 kg, 152.4 cm) db MDM: 13:49 Patient medically screened. sd2 14:13 Differential diagnosis: Asthma exacerbation, viral URI, sinusitis, cluster NAVA, tension sd2 NAVA among others. Data reviewed: vital signs, nurses notes, lab test result(s). I considered the following discharge prescriptions or medication management in the emergency department Medications were administered in the Emergency Department. See MAR. Care significantly affected by the following chronic conditions: Asthma. 16:09 Counseling: I had a detailed discussion with the patient and/or guardian regarding the sd2 historical points, exam findings, and any diagnostic results supporting the discharge/admit diagnosis, lab results, the need for outpatient follow up. ED course: Viral testing negative. Pt comfortable with plan for discharge with inhaler and steroids and continued supportive care with OTC medications. Verbalizes understanding of discharge plan and strict return precautions.. 11/08 14:13 Order name: SARS RAPID; Complete Time: 16:05 sd2 11/08 14:13 Order name: Flu; Complete Time: 16:05 sd2 Administered Medications: 14:28 Not Given (Patient Refused; Patient took ibuprofen 800mg ptaa): [id number] mg PO once me1 14:28 Drug: predniSONE PO 60 mg PO once Route: PO; me1 15:07 Follow up: Response: No adverse reaction me1 Disposition Summary: 11/09/23 16:11 Discharge Ordered Problem: new sd2 Symptoms: have improved sd2 Condition: Stable sd2 Diagnosis - Asthma exacerbation sd2 - Sinus pressure sd2 - Headache sd2 Followup: sd2 - With: Private Physician - When: 2 - 3 days - Reason: Recheck today's complaints, Continuance of care, Re-evaluation by your physician Discharge Instructions: - Discharge Summary Sheet sd2 - Upper Respiratory Infection, Adult sd2 - Asthma Attack sd2 - How to Perform a Sinus Rinse sd2 Forms: - Medication Reconciliation Form sd2 - Antibiotic Education sd2 - Prescription Opioid Use sd2 - Patient Portal Instructions sd2 - Leadership Thank You Letter sd2 Prescriptions: - albuterol sulfate 90 mcg/actuation Inhalation HFA Aerosol Inhaler - inhale 2 inhalation INHALATION route every 4 to 6 hours As needed as needed for sd2 cough and shortness of breath; 1 unit; Refills: 0, Product Selection Permitted - Prednisone 20 mg Oral Tablet - take 2 tablets ORAL route once daily for 5 days; 10 tablet; Refills: 0, Product sd2 Selection Permitted Signatures: Dispatcher [employer] EDAbril Martel MD MD sd2 Lila Leon RN RN Chanel Frazier RN RN me1 Corrections: (The following items were deleted from the chart) 13:47 13:46 Social history: Smoking status: Patient denies any tobacco usage or history of. dbdb 14:13 14:13 SARS-COV-2 Antigen Rapid+I.LAB.BRZ ordered. EDMS EDMS 14:13 14:13 Influenza Screen (A \T\ B)+BA.LAB.BRZ ordered. EDMS EDMS
--- NOTE | 2023-11-09 16:12 | ER ---
Nurse's Notes [facility] Name: Melonie Fuller Age: 33 yrs Sex: Female : 1990 Arrival Date: 11/09/2023 Time: 13:37 Bed 12 Private MD: Diagnosis: Asthma exacerbation;Sinus pressure;Headache Presentation: 11/08 13:43 Chief complaint: Patient states: NASAL CONGESTION X 1 WEEK STATES HAS ASTHMA AND db ALLERGIES AND TODAY HAS BAD ALLERGIES AND DIFFICULTY BREATHING DUE TO ALLERGIES. STATES TOOK SINUS ALLERGY MEDS AT HOME. COMPLAINS EYES ARE WATERING AND HAD PANIC ATTACK TODAY. Coronavirus screen: Client denies travel out of the [place] in the last 14 days. At this time, the client does not indicate any symptoms associated with coronavirus-19. Ebola Screen: Patient negative for fever greater than or equal to 101.5 degrees Fahrenheit, and additional compatible Ebola Virus Disease symptoms Patient denies exposure to infectious person. Patient denies travel to an Ebola-affected area in the 21 days before illness onset. No symptoms or risks identified at this time. Initial Sepsis Screen: Does the patient meet any 2 criteria? No. Patient's initial sepsis screen is negative. Does the patient have a suspected source of infection? No. Patient's initial sepsis screen is negative. Risk Assessment: Do you want to hurt yourself or someone else? Patient reports no desire to harm self or others. Onset of symptoms was November 09, 2023. 13:43 Method Of Arrival: Ambulatory db 13:43 Acuity: EMILIO 3 db Triage Assessment: 13:46 General: Appears in no apparent distress. comfortable, Behavior is calm, cooperative. db Pain: Denies pain. EENT: Reports nasal congestion. Neuro: Level of Consciousness is awake, alert, obeys commands, Oriented to person, place, time, situation. Respiratory: Reports shortness of breath Airway is patent Respiratory effort is even, unlabored, Respiratory pattern is regular, symmetrical, Onset: The symptoms/episode began/occurred just prior to arrival, the patient has mild shortness of breath. GUIDE PLANT: 13:43 LMP 10/10/2023, unknown db Historical: - Allergies: 13:46 No Known Allergies; db - PMHx: 13:46 Anxiety; depressive disorder; Asthma; db - Immunization history:: Adult Immunizations unknown. - Infectious Disease History:: Denies. - Social history:: Smoking status: Reported history of juuling and/or vaping. Screenin:50 [facility] ED Fall Risk Assessment (Adult) History of falling in the last 3 months, me1 including since admission No falls in past 3 months (0 pts) Confusion or Disorientation No (0 pts) Intoxicated or Sedated No (0 pts) Impaired Gait No (0 pts) Mobility Assist Device Used No (0 pt) Altered Elimination No (0 pt) Score/Fall Risk Level 0 - 2 = Low Risk Maintained a safe environment, Provided non-skid footwear, Hourly rounding (assess needs \T\ fall precautionary measures) done. Abuse screen: Denies threats or abuse. Nutritional screening: No deficits noted. Tuberculosis screening: No symptoms or risk factors identified. Assessment: 13:50 General: Appears uncomfortable, well groomed, well developed, well nourished, Behavior me1 is cooperative, appropriate for age, combative, Reports NASAL CONGESTION X 1 WEEK STATES HAS ASTHMA AND ALLERGIES AND TODAY HAS BAD ALLERGIES AND DIFFICULTY BREATHING DUE TO ALLERGIES. STATES TOOK SINUS ALLERGY MEDS AT HOME. COMPLAINS EYES ARE WATERING AND HAD PANIC ATTACK TODAY. Pain: Denies pain. Neuro: Level of Consciousness is awake, alert, obeys commands, Oriented to person, place, time, situation, Appropriate for age. Cardiovascular: Patient's skin is warm and dry. Respiratory: Reports shortness of breath Airway is patent Respiratory effort is even, unlabored, Respiratory pattern is regular, symmetrical. GI: No signs and/or symptoms were reported involving the gastrointestinal system. : No signs and/or symptoms were reported regarding the genitourinary system. EENT: Reports nasal congestion since one week. Derm: Skin is intact, is healthy with good turgor, Skin is pink, warm \T\ dry. Musculoskeletal: No signs and/or symptoms reported regarding the musculoskeletal system. 13:50 Cardiovascular: Rhythm is regular. Respiratory: Breath sounds are clear bilaterally. me1 Vital Signs: 13:43 BP 117 / 101; Pulse 89; Resp 18; Temp 98.6; Pulse Ox 100% ; Weight 113.4 kg; Height 5 db ft. 0 in. ; 16:35 BP 120 / 94; Pulse 86; Resp 19; Temp 98.4; Pulse Ox 100% ; me1 13:43 Body Mass Index 48.83 (113.40 kg, 152.4 cm) db ED Course: 13:38 Patient arrived in ED. mr 13:43 Arm band placed on right wrist. Patient placed in waiting room. db 13:45 Triage completed. db 13:49 Chanel Frazier, RN is Primary Nurse. me1 13:49 Abril Wong MD is Attending Physician. sd2 13:50 Patient has correct armband on for positive identification. Bed in low position. Call me1 light in reach. Side rails up X 1. Provided Education on: POC. Verbalized understanding. . 13:50 No provider procedures requiring assistance completed. me1 16:35 Patient did not have IV access during this emergency room visit. me1 Administered Medications: 14:28 Not Given (Patient Refused; Patient took ibuprofen 800mg ptaa): [id number] mg PO once me1 14:28 Drug: predniSONE PO 60 mg PO once Route: PO; me1 15:07 Follow up: Response: No adverse reaction me1 Medication: 13:50 VIS not applicable for this client. me1 Outcome: 16:11 Discharge ordered by . sd2 16:35 Discharged to home ambulatory, with significant other, me1 16:35 Condition: stable 16:35 Discharge instructions given to patient, significant other, Instructed on discharge instructions, follow up and referral plans. medication usage, Demonstrated understanding of instructions, follow-up care, medications, 16:42 Patient left the ED. me1 16:44 Instructed on Demonstrated understanding of Prescriptions given X 2, me1 Signatures: Bibi Fuller, Reg Reg mr Abril Wong MD MD sd2 Lila Leon RN RN Chanel Frazier, GEOVANNA RN me1 Corrections: (The following items were deleted from the chart) 13:47 13:46 Social history: Smoking status: Patient denies any tobacco usage or history of. dbdb 13:48 13:43 Chief complaint: Patient states: STATES HAS ASTHMA AND ALLERGIES AND TODAY HAS db BAD ALLERGIES AND DIFFICULTY BREATHING DUE TO ALLERGIES. STATES TOOK SINUS ALLERGY MEDS AT HOME. COMPLAINS EYES ARE WATERING AND HAD PANIC ATTACK TODAY db 13:48 13:43 113.4 kg; Height 5 ft. 0 in.; BMI: 48.8; db db 13:50 13:43 Chief complaint: Patient states: NASAL CONGESTION X 1 WEEK STATES HAS ASTHMA AND me1 ALLERGIES AND TODAY HAS BAD ALLERGIES AND DIFFICULTY BREATHING DUE TO ALLERGIES. STATES TOOK SINUS ALLERGY MEDS AT HOME. COMPLAINS EYES ARE WATERING AND HAD PANIC ATTACK TODAY db
[2023-11-09 16:47] VITALS: BP 117/101; TEMP 98.6; O2SAT 100
== END 2023-11-09 16:42 | disposition home or self-care (01) ==
LOC: ER 13:37
DX: J45.901 Unspecified asthma with (acute) exacerbation (principal); R51.9 Headache, unspecified; J34.89 Other specified disorders of nose and nasal sinuses; Z11.52 Encounter for screening for COVID-19
CPT/HCPCS: 36415; 87804; 87811; 99284; J7512